=== PATIENT | female | born 1940 | race Two or more races ===

== ENCOUNTER 2020-07-06 17:27 | Inpatient (IN) | payer MEDICARE, MEDICAID, SELFPAY ==
--- NOTE | 2020-07-06 17:36 | ECG_ITS ---
Test Reason : CHEST PAIN Blood Pressure : / mmHG Vent. Rate : 063 BPM Atrial Rate : 063 BPM P-R Int : 178 ms QRS Dur : 082 ms QT Int : 418 ms P-R-T Axes : 058 -03 067 degrees QTc Int : 427 ms Normal sinus rhythm Low voltage QRS Nonspecific ST abnormality Borderline ECG When compared with ECG of 28-MAY-2020 17:19, No significant change was found Referred By: Paula Noriega Electronically Signed By:MARIBEL MOSER MD
--- NOTE | 2020-07-06 17:37 | XR_ITS ---
EXAMINATION: CHEST 1 VIEW CLINICAL INFORMATION: Chest pain. COMPARISON: May 28, 2020. TECHNIQUE: An AP view of the chest is provided. FINDINGS: The cardiac silhouette is stable. A vascular stent is in unchanged position. The mediastinal and hilar contours are unremarkable. There are neither pleural effusions nor pneumothoraces. There are no consolidations. The osseous structures are stable. XR/XR chest 1V IMPRESSION: No evidence for acute disease.
--- NOTE | 2020-07-06 17:40 | ED_ITS ---
HPI - Chest Pain General Chief Complaint: Chest Pain Stated Complaint: chest pain Time Seen by Provider: 07/06/20 17:34 Source: RN notes reviewed and old records reviewed Mode of arrival: EMS Limitations: language barrier, altered mental status and physical limitation History of Present Illness HPI narrative: 79-year-old female presents via EMS for chest pain. Upon arrival patient is not answering any questions, moaning, unable to follow directions. Unable to obtain H&P. She presents from a senior living, medication and medical history obtained from the information in the packet sent. MD complaint: chest pain Pertinent past history: coronary artery disease and prior OH Onset (ago): day(s) Timing of current episode: constant Prior episodes: Yes Severity: moderate Risk Factors Coronary artery disease risk factors: diabetes, hyperlipidemia, hypertension and family history of CAD before age 50 Thoracic aortic dissection risk factors: longstanding hypertension and acortic valve defect (bicuspid aortic valve) Related Data On Oral Contraceptives: No Home Medications Medication Instructions Recorded Confirmed albuterol sulfate [Ventolin HFA] 2 puff INHALATION Q4-6H PRN 07/06/20 07/06/20 apixaban [Eliquis] 5 mg PO BID 07/06/20 07/06/20 atorvastatin 80 mg PO BEDTIME 07/06/20 07/06/20 famotidine 20 mg PO BID 07/06/20 07/06/20 fluticasone furoate-vilanterol 1 inh INHALATION DAILY 07/06/20 07/06/20 [Breo Ellipta] insulin glargine [Lantus Solostar 24 unit SUBCUT QAM 07/06/20 07/06/20 U-100 Insulin] insulin lispro [Humalog U-100 1 sliding scale dose SUBCUT 07/06/20 07/06/20 Insulin] USEASDIRECTD metoprolol succinate 25 mg PO DAILY 07/06/20 07/06/20 multivitamin 1 tab PO DAILY 07/06/20 07/06/20 nystatin [Nystop] 1 applic TOPICAL BID 07/06/20 07/06/20 pregabalin 100 mg PO DAILY 07/06/20 07/06/20 trazodone 50 mg PO BEDTIME 07/06/20 07/06/20 Allergies Allergy/AdvReac Type Severity Reaction Status Date / Time Penicillins [PENICILLINS] Allergy Unknown STOMACH Unverified 06/01/20 14:38 UPSET gabapentin [From Neurontin] Allergy Unknown Verified 07/06/20 17:47 lisinopril Allergy Unknown Verified 07/06/20 17:47 metformin [From Glucophage] Allergy Unknown Verified 07/06/20 17:47 Review of Systems Review of Systems: Yes Unobtainable due to mental status PMF Past Medical History Attestation statement: The following information was validated with the patient. Social History Social History Advance Directives: No Advance Directives Information Provided: No Physical Exam Vital Signs: Vital Signs: Vital Signs Temp Pulse Resp BP Pulse Ox 07/06/20 22:00 70 16 156/77 H 07/06/20 20:00 97.7 F 67 16 146/75 H 94 07/06/20 17:56 98.3 F 07/06/20 17:49 63 22 H 147/44 H 95 Body Mass Index 35.2 Appearance: Alert. unable to answer questions and follow simple commands. Eyes: Pupils equal, round and reactive to light. ENT: Pharynx normal. Neck: Normal inspection. Neck supple. CVS: Normal heart rate and rhythm. Pulses normal. Respiratory: No respiratory distress. Breath sounds normal. Abdomen: Soft and nontender. Skin: Skin warm and dry. Normal skin color. Normal skin turgor. Extremities: No lower extremity edema. Neuro: No motor deficit. No sensory deficit. Course Course Course Narrative: 79-year-old female presents via EMS for chest pain. Unable to obtain history, patient is not answering questions appropriately, moaning, able to make eye contact. Records reviewed from her retirement facility, states that she is legally competent, with history of nonrheumatic aortic valve stenosis, weakness, cardiovascular disease, cerebral vascular disease, COPD, for coordination, arthrosclerosis, angina, dysphagia, prosthetic valve, type 2 diabetes, hyperlipidemia, major depressive disorder, anxiety, hypertension, history of OH and reflux.She does have dysphagia per baseline, needs her medications crushed, unable to contact staff, we will rule out CVA, ACS, infection. RN contacted staff, patient has baseline left-sided contracture, dysphagia, speaks in Cuban, and needs assistance with all activities of daily living including eating. She has dementia per baseline, incontinent of urine and bladder, does not ambulate, is wheelchair or bed-bound. Reevaluation(s) Reevaluation #1: 22 gauge IV to the right hand, 2nd attempt by this [employer]. Labs obtained. Time: 18:32 Reevaluation #2: Nursing updated this [employer] that labs have been hemolyzed, labs reordered. Time: 19:05 Reevaluation #3: discussion with hospitalist at 9:45 p.m. regarding admission, hospitalist agrees to admit at 11:06 p.m.. Rapid COVID-19 ordered. Will be admitted for UTI, does not meet sepsis guideline. Time: 23:17 MDM - Chest Pain Differential Diagnosis Differential diagnosis: Likely pneumothorax, atypical chest pain, st elevation myocardial infarction, costochondritis and chest pain Differential diagnosis: Aspiration pneumonia, sepsis, CVA, urinary tract infection, AAA Medical Records Data Attestation: I reviewed the patient's medical records. Lab Data Attestation: I reviewed the patient's lab results. Result diagrams: 07/06/20 18:32 07/06/20 19:23 Labs: Lab Results 07/06/20 07/06/20 07/06/20 Range/Units 18:32 18:32 18:32 WBC 12.3 H (4.8-10.8) X10*3/uL RBC 4.08 L (4.20-5.50) X10*6/uL Hgb 11.6 L (12.0-16.0) g/dl Hct 36.4 L (37-47) % MCV 89.2 (80-98) fL MCH 28.4 (27.0-33.0) pg MCHC 31.9 (31.0-35.0) g/dl RDW 15.9 (11.0-16.0) % Plt Count 322 (160-400) X10*3/uL MPV 10.5 (9.4-12.3) fL Immature Gran % (Auto) 0.3 (0.0-0.4) % Neut % (Auto) 63.9 (45-73) % Lymph % (Auto) 18.0 L (20-40) % [place] % (Auto) 5.9 (2-11) % Eos % (Auto) 11.2 H (0-4) % Baso % (Auto) 0.7 (0-2) % Lymph # (Auto) 2.2 (1.2-4.9) X10*3/uL [place] # (Auto) 0.7 (0.1-1.2) X10*3/uL Eos # (Auto) 1.4 H (0.0-0.4) X10*3/uL Baso # (Auto) 0.1 (0.0-0.2) X10*3/uL Abs Immat Gran (auto) 0.04 H (0.00-0.03) X10*3/uL Absolute Neuts (auto) 7.8 (2.0-8.3) X10*3/uL Absolute Nucleated RBC 0.000 (0.0-0.012) X10*3/uL Nucleated RBC % (auto) 0.0 (0.0-0.2) /100WBC PT INR APTT Sodium Potassium Chloride Carbon Dioxide Anion Gap BUN Creatinine Estim Creat Clear Calc Estimated GFR POC Glucose (60-115) mg/dL Random Glucose Lactic Acid 1.8 (0.5-2.0) mmol/L Calcium Total Bilirubin Direct Bilirubin AST ALT Alkaline Phosphatase Troponin I High Sens 7.1 (<3.5-17.0) ng/L B-Natriuretic Peptide 26 (<100) pg/mL Total Protein Albumin Lipase Urine Color Urine Appearance Urine pH (5.0-8.0) Ur Specific [place] (1.005-1.025) Urine Protein (NEG-TRACE) MG/DL Urine Glucose (UA) (NEG) MG/DL Urine Ketones (NEG) MG/DL Urine Blood (NEG) Urine Nitrite (NEG) Ur Leukocyte Esterase (NEG) Urine RBC (0) /HPF Urine WBC (0-4) /HPF Ur Squamous Epith Cells /LPF Urine Bacteria /LPF Urine Mucus /LPF 07/06/20 07/06/20 07/06/20 Range/Units 18:32 18:32 19:17 WBC (4.8-10.8) X10*3/uL RBC (4.20-5.50) X10*6/uL Hgb (12.0-16.0) g/dl Hct (37-47) % MCV (80-98) fL MCH (27.0-33.0) pg MCHC (31.0-35.0) g/dl RDW (11.0-16.0) % Plt Count (160-400) X10*3/uL MPV (9.4-12.3) fL Immature Gran % (Auto) (0.0-0.4) % Neut % (Auto) (45-73) % Lymph % (Auto) (20-40) % [place] % (Auto) (2-11) % Eos % (Auto) (0-4) % Baso % (Auto) (0-2) % Lymph # (Auto) (1.2-4.9) X10*3/uL [place] # (Auto) (0.1-1.2) X10*3/uL Eos # (Auto) (0.0-0.4) X10*3/uL Baso # (Auto) (0.0-0.2) X10*3/uL Abs Immat Gran (auto) (0.00-0.03) X10*3/uL Absolute Neuts (auto) (2.0-8.3) X10*3/uL Absolute Nucleated RBC (0.0-0.012) X10*3/uL Nucleated RBC % (auto) (0.0-0.2) /100WBC PT Cancelled INR Cancelled APTT Cancelled Sodium Cancelled Potassium Cancelled Chloride Cancelled Carbon Dioxide Cancelled Anion Gap Cancelled BUN Cancelled Creatinine Cancelled Estim Creat Clear Calc Cancelled Estimated GFR Cancelled POC Glucose 243 H (60-115) mg/dL Random Glucose Cancelled Lactic Acid (0.5-2.0) mmol/L Calcium Cancelled Total Bilirubin Cancelled Direct Bilirubin Cancelled AST Cancelled ALT Cancelled Alkaline Phosphatase Cancelled Troponin I High Sens (<3.5-17.0) ng/L B-Natriuretic Peptide (<100) pg/mL Total Protein Cancelled Albumin Cancelled Lipase Cancelled Urine Color Urine Appearance Urine pH (5.0-8.0) Ur Specific [place] (1.005-1.025) Urine Protein (NEG-TRACE) MG/DL Urine Glucose (UA) (NEG) MG/DL Urine Ketones (NEG) MG/DL Urine Blood (NEG) Urine Nitrite (NEG) Ur Leukocyte Esterase (NEG) Urine RBC (0) /HPF Urine WBC (0-4) /HPF Ur Squamous Epith Cells /LPF Urine Bacteria /LPF Urine Mucus /LPF 07/06/20 07/06/20 07/06/20 Range/Units 19:23 19:23 20:39 WBC (4.8-10.8) X10*3/uL RBC (4.20-5.50) X10*6/uL Hgb (12.0-16.0) g/dl Hct (37-47) % MCV (80-98) fL MCH (27.0-33.0) pg MCHC (31.0-35.0) g/dl RDW (11.0-16.0) % Plt Count (160-400) X10*3/uL MPV (9.4-12.3) fL Immature Gran % (Auto) (0.0-0.4) % Neut % (Auto) (45-73) % Lymph % (Auto) (20-40) % [place] % (Auto) (2-11) % Eos % (Auto) (0-4) % Baso % (Auto) (0-2) % Lymph # (Auto) (1.2-4.9) X10*3/uL [place] # (Auto) (0.1-1.2) X10*3/uL Eos # (Auto) (0.0-0.4) X10*3/uL Baso # (Auto) (0.0-0.2) X10*3/uL Abs Immat Gran (auto) (0.00-0.03) X10*3/uL Absolute Neuts (auto) (2.0-8.3) X10*3/uL Absolute Nucleated RBC (0.0-0.012) X10*3/uL Nucleated RBC % (auto) (0.0-0.2) /100WBC PT 17.0 H INR 1.4 H APTT 43.1 H Sodium 136 Potassium 4.4 Chloride 102 Carbon Dioxide 25 Anion Gap 13 BUN 23 H Creatinine 0.92 Estim Creat Clear Calc 45.4 Estimated GFR 59 POC Glucose (60-115) mg/dL Random Glucose 231 H Lactic Acid (0.5-2.0) mmol/L Calcium 8.8 Total Bilirubin 0.2 Direct Bilirubin < 0.2 AST 21 ALT 33 H Alkaline Phosphatase 110 Troponin I High Sens (<3.5-17.0) ng/L B-Natriuretic Peptide (<100) pg/mL Total Protein 6.7 Albumin 3.9 Lipase 48 Urine Color YELLOW Urine Appearance CLOUDY Urine pH 6.0 (5.0-8.0) Ur Specific [place] 1.010 (1.005-1.025) Urine Protein NEG (NEG-TRACE) MG/DL Urine Glucose (UA) NEG (NEG) MG/DL Urine Ketones NEG (NEG) MG/DL Urine Blood TRACE (NEG) Urine Nitrite POS H (NEG) Ur Leukocyte Esterase 3+ H (NEG) Urine RBC 5-9 H (0) /HPF Urine WBC 76-150 H (0-4) /HPF Ur Squamous Epith Cells 1+ /LPF Urine Bacteria 3+ /LPF Urine Mucus 1+ /LPF Imaging Data Chest x-ray: Attestation: I personally reviewed and interpreted this imaging study as follows: Radiologist's impression: FINDINGS: The cardiac silhouette is stable. A vascular stent is in unchanged position. The mediastinal and hilar contours are unremarkable. There are neither pleural effusions nor pneumothoraces. There are no consolidations. The osseous structures are stable. XR/XR chest 1V IMPRESSION: No evidence for acute disease. CT scan - head: Attestation: I personally reviewed and interpreted this imaging study as follows: Radiologist's impression: FINDINGS: There are no pathologic extra-axial fluid collections. The lateral, third, fourth ventricles are, and, thousand age-appropriate and concordant with the appearance of the sulci. There is no evidence for acute intraparenchymal hemorrhage or infarct. There is neither mass nor mass effect. There is no shift of midline structures. The paranasal sinuses and mastoid air cells are clear. There are no osseous lesions. CT/CT head/brain wo con IMPRESSION: No evidence for acute intracranial injury. Automated exposure control (Care Dose) Adjustment of the mA and/or kv according to patient size (this includes techniques or standardized protocols for targeted exams where dose is matched to indication / reason for exam; i.e. extremities or head). ECG Data ECG #1: Attestation: I personally reviewed and interpreted this ECG as follows: ECG interpretation date: 07/06/20 ECG interpretation time: 17:38 Prior ECG tracings: available for review Interpretation: Vent. rate 63 BPM IA interval 178 ms QRS duration 82 ms QT/QTc 418/427 ms P-R-T axes 58 -3 67 Normal sinus rhythm Low voltage QRS Borderline ECG When compared with ECG of 26-MAY-2020 14:58, No significant change was found please note EKG entered in as HO. Action, 79F visit: [id number] Critical Care Time Critical Care Time Critical Care Time: Yes Total Critical Care Time: 60 Attestation: I have personally provided critical care time exclusive of time spent on separately billable procedures. Time includes review of laboratory data, radiology results, discussion with consultants, and monitoring for potential decompensation. Interventions were performed as documented. Discharge Plan Discharge Clinical Impression: Urinary tract infection Qualifiers: Urinary tract infection type: acute cystitis Hematuria presence: with hematuria Qualified Code(s): N30.01 - Acute cystitis with hematuria Patient Disposition: Admitted As Inpatient Interventions: Admission Worksheet (ED) Last Done: 07/07/20 00:37
--- NOTE | 2020-07-06 17:41 | CT_ITS ---
EXAMINATION: CT HEAD WITHOUT CONTRAST CLINICAL INFORMATION: Altered mental status. COMPARISON: None. TECHNIQUE: Contiguous helical images of the brain were obtained without IV contrast. Multiplanar reconstructions were performed. DLP: 709 mGy-cm. FINDINGS: There are no pathologic extra-axial fluid collections. The lateral, third, fourth ventricles are, and, thousand age-appropriate and concordant with the appearance of the sulci. There is no evidence for acute intraparenchymal hemorrhage or infarct. There is neither mass nor mass effect. There is no shift of midline structures. The paranasal sinuses and mastoid air cells are clear. There are no osseous lesions. CT/CT head/brain wo con IMPRESSION: No evidence for acute intracranial injury. Automated exposure control (Care Dose) Adjustment of the mA and/or kv according to patient size (this includes techniques or standardized protocols for targeted exams where dose is matched to indication / reason for exam; i.e. extremities or head).
[2020-07-06 17:49] VITALS: BP 147/44; PULSE 63; RESP 22; O2SAT 95; BMI 35.2
[2020-07-06 17:56] VITALS: TEMP 36.8
[2020-07-06 18:41] LABS: MANUAL DIFF FLAG NO
[2020-07-06 18:45] LABS: Basophils Absolute Auto 0.1 X10*3/uL (0.0-0.2); Basophils Percent Auto 0.7 % (0-2); Eosinophils Absolute Auto 1.4 X10*3/uL (0.0-0.4); Eosinophils Percent Auto 11.2 % (0-4); Hematocrit 36.4 % (37-47); Hemoglobin 11.6 g/dl (12.0-16.0); Imm Gran Abs Auto 0.04 X10*3/uL (0.00-0.03); Imm Gran Pct Auto 0.3 % (0.0-0.4); Lymphocytes Absolute Auto 2.2 X10*3/uL (1.2-4.9); Mean Corpuscular HGB Conc 31.9 g/dl (31.0-35.0); Mean Corpuscular Hemoglobin 28.4 pg (27.0-33.0); Mean Corpuscular Volume 89.2 fL (80-98); Mean Platelet Volume 10.5 fL (9.4-12.3); Monocytes Absolute Auto 0.7 X10*3/uL (0.1-1.2); Monocytes Percent Auto 5.9 % (2-11); Neutrophils Absolute Auto 7.8 X10*3/uL (2.0-8.3); Neutrophils Percent Auto 63.9 % (45-73); Platelet Count 322 X10*3/uL (160-400); Red Blood Count 4.08 X10*6/uL (4.20-5.50); Red Cell Distribution Width 15.9 % (11.0-16.0); White Blood Count 12.3 X10*3/uL (4.8-10.8)
[2020-07-06 19:06] LABS: Lactic Acid 1.8 mmol/L (0.5-2.0)
[2020-07-06 19:16] LABS: B Type Natriuretic Peptide 26 pg/mL (<100); Troponin-I High Sensitivity 7.1 ng/L (<3.5-17.0)
[2020-07-06 19:29] LABS: Glucose, Whole Blood 243 mg/dL (60-115)
[2020-07-06 19:36] LABS: INTERNATIONAL NORM RATIO 1.4 (0.9-1.1)
[2020-07-06 19:38] LABS: Partial Thromboplastin Time 43.1 SEC (24.1-38.0)
[2020-07-06 19:56] LABS: Alanine Aminotransferase 33 U/L (0-31); Albumin Level 3.9 g/dL (3.5-5.0); Alkaline Phosphatase 110 U/L (39-117); Anion Gap 13 (12-20); Aspartate Amino Transferase 21 U/L (5-31); Bilirubin Direct < 0.2 mg/dL (0.0-0.5); Bilirubin Total 0.2 mg/dL (0.0-1.0); Blood Urea Nitrogen 23 mg/dL (9-16); Calcium 8.8 mg/dL (8.4-10.2); Carbon Dioxide 25 mmol/L (22-29); Chloride 102 mmol/L (96-108); Creatinine Clr Calc Pharmacy 45.4; Estimated Glomerular Filt Rate 59; Glucose Random 231 mg/dL (60-115); Lipase 48 U/L (8-78); Potassium 4.4 mmol/l (3.3-5.1); Sodium 136 mmol/L (135-145); Total Protein 6.7 g/dL (6.5-8.0)
[2020-07-06 20:00] VITALS: BP 146/75; PULSE 67; RESP 16; TEMP 36.5; O2SAT 94
--- NOTE | 2020-07-06 20:14 | PC.NURSE ---
pt in nonverbal with this rn pt left arm contracted, pt incont of large amount of urine. spoke with the [facility] and pt baseline is dementa, needs to be fed and does have coughing with swallowing at baseline. pt doesnt ambulate and is wheelchair bound, pt is on a soft mech diet and needs to be fed, pt also drinks thur a straw. per yeny [phone]. provider also made aware of pt baseline.
[2020-07-06 20:51] LABS: Glucose Urine UA NEG (NEG); Leukocyte Esterase Urine 3+ (NEG); Nitrite Urine POS (NEG); Urine Blood TRACE (NEG); Urine Ketones NEG (NEG); Urine Protein NEG (NEG-TRACE)
[2020-07-06 20:55] LABS: Appearance Urine CLOUDY; Color Urine YELLOW
[2020-07-06 21:00] LABS: Bacteria Urine 3+ /LPF; Mucus Urine 1+ /LPF; Squamous Epithelial Cell Urine 1+ /LPF
[2020-07-06 22:00] VITALS: BP 156/77; PULSE 70; RESP 16
[2020-07-06] MEDS: Insulin Regular, Human 100 UNIT/ML 3 ML VIAL 10 UNIT SUBCUT (22:17)
[2020-07-06] MEDS: cefTRIAXone sodium 1 GM in 0.9 % Sodium Chloride 50 ML IV (22:18)
--- NOTE | 2020-07-06 23:09 | P.HPIM_ITS ---
History of Present Illness Date of Service: 07/06/20 Chief Complaint: Chest pain / AMS 79 y/o female with an extensive PMHX who presented from home due to AMS and c/o chest pain . Patient is minimally verbal given possible underlying dementia and dysarthria due to hx of CVA with left sided hemiparesis. Symptoms are reported to be present for the past 1 day. No evidence of SOB, nausea, vomiting, cough, fever or diarrhea is reported. On presentation to the ED was noted to be tachypneic which improved without intervention, no evidence of tachycardia or fever. BP stable. WBC of 12.3, INR of 1.4, Ua positive for UTI, CT head negative for any acute intracranial pathology. CXR no evidence of any underlying pa thology. Decision for admission was given due to UTI and possible underlying metabolic encephalopathy. Patient seen and examined at the bedside, laying down in bed in no acute distress. ROS unable to be obtained given mental state. Physical exam: patient cooperative, following simple commands, LUE strenght 1/5, LLE/RUE/RLE strength preserved. sensation preserved. It is not clear if this is baseline mental state of the patient at the moment. Past Medical History: 1. STEMI status post PCI 2. Anxiety 3. Depression 4. Aortic stenosis 5. Diverticulosis 6. Diabetes mellitus 7. History of aortic valve replacement with bioprosthetic valve (TAVR) 8. Hyperlipidemia 9. Hypertension 10. Incontinence 11. Insomnia 12. Osteoarthritis 13. Obesity 14. GERD 15. Right rotator cuff tear with impingement status post surgical intervention 16. Cardiac catheterization 03/21/2017 with findings of anterior myocardial infarction, showed distal LAD occlusion, resolved with thrombectomy and vasodilation 17. Excision of benign neck lesion on 10/11/2008 18. Cholecystectomy PSX: cholecystectomy, excision of benign neck lesion, rotator cuff repair, valve replacement, S/p PCI Toxic habits: NO hx of alcohol abuse, smoking or IVDA Review of Systems Review of Systems: Yes Other (unable to be obtained) [facility] Functional capacity: bed bound Social History Advance Directives: No Advance Directives Information Provided: No Meds Allergies Allergy/AdvReac Type Severity Reaction Status Date / Time Penicillins [PENICILLINS] Allergy Unknown STOMACH Unverified 06/01/20 14:38 UPSET gabapentin [From Neurontin] Allergy Unknown Verified 07/06/20 17:47 lisinopril Allergy Unknown Verified 07/06/20 17:47 metformin [From Glucophage] Allergy Unknown Verified 07/06/20 17:47 Home Medications Medication Instructions Recorded Confirmed Type albuterol sulfate [Ventolin HFA] 2 puff INHALATION Q4-6H PRN 07/06/20 07/06/20 History apixaban [Eliquis] 5 mg PO BID 07/06/20 07/06/20 History atorvastatin 80 mg PO BEDTIME 07/06/20 07/06/20 History famotidine 20 mg PO BID 07/06/20 07/06/20 History fluticasone furoate-vilanterol 1 inh INHALATION DAILY 07/06/20 07/06/20 History [Breo Ellipta] insulin glargine [Lantus Solostar 24 unit SUBCUT QAM 07/06/20 07/06/20 History U-100 Insulin] insulin lispro [Humalog U-100 1 sliding scale dose SUBCUT 07/06/20 07/06/20 History Insulin] USEASDIRECTD metoprolol succinate 25 mg PO DAILY 07/06/20 07/06/20 History multivitamin 1 tab PO DAILY 07/06/20 07/06/20 History nystatin [Nystop] 1 applic TOPICAL BID 07/06/20 07/06/20 History pregabalin 100 mg PO DAILY 07/06/20 07/06/20 History trazodone 50 mg PO BEDTIME 07/06/20 07/06/20 History Physical Exam Vital Signs and Narrative: Vital Signs: Last Vital Signs Temp 97.7 F 07/06/20 20:00 Pulse 67 07/06/20 20:00 Resp 16 07/06/20 20:00 BP 146/75 H 07/06/20 20:00 Pulse Ox 94 07/06/20 20:00 Body Mass Index 35.2 Const: General: cooperative, comfortable and no acute distress HENMT: Head: Yes normal to inspection Eyes: General: appearance normal, both eyes and all related structures Neck: Yes normal visual inspection Chest: Chest palpation & inspection: normal inspection of the chest Resp: Effort & Inspection: normal respiratory effort Cardio: Jugular venous distension: no JVD Heart sounds: S1 normal heart sound present and S2 normal heart sound present GI: Inspection: Yes normal to inspection Skin: General skin exam: no rashes or lesions noted Neuro: General: other (awake, alert, unable to assess orientation given dysarthria and dementia) Extrem: General: Yes other (all 4 extremities mildly contracted ) Psych: Appearance: well kempt Results Labs Labs: Laboratory Tests 07/06/20 07/06/20 07/06/20 18:32 18:32 18:32 WBC 12.3 H RBC 4.08 L Hgb 11.6 L Hct 36.4 L MCV 89.2 MCH 28.4 MCHC 31.9 RDW 15.9 Plt Count 322 MPV 10.5 Immature Gran % (Auto) 0.3 Neut % (Auto) 63.9 Lymph % (Auto) 18.0 L [place] % (Auto) 5.9 Eos % (Auto) 11.2 H Baso % (Auto) 0.7 Lymph # (Auto) 2.2 [place] # (Auto) 0.7 Eos # (Auto) 1.4 H Baso # (Auto) 0.1 Abs Immat Gran (auto) 0.04 H Absolute Neuts (auto) 7.8 Absolute Nucleated RBC 0.000 Nucleated RBC % (auto) 0.0 PT INR APTT Sodium Potassium Chloride Carbon Dioxide Anion Gap BUN Creatinine Estim Creat Clear Calc Estimated GFR POC Glucose Random Glucose Lactic Acid 1.8 Calcium Total Bilirubin Direct Bilirubin AST ALT Alkaline Phosphatase Troponin I High Sens 7.1 B-Natriuretic Peptide 26 Total Protein Albumin Lipase Urine Color Urine Appearance Urine pH Ur Specific [place] Urine Protein Urine Glucose (UA) Urine Ketones Urine Blood Urine Nitrite Ur Leukocyte Esterase Urine RBC Urine WBC Ur Squamous Epith Cells Urine Bacteria Urine Mucus 07/06/20 07/06/20 07/06/20 18:32 18:32 19:17 WBC RBC Hgb Hct MCV MCH MCHC RDW Plt Count MPV Immature Gran % (Auto) Neut % (Auto) Lymph % (Auto) [place] % (Auto) Eos % (Auto) Baso % (Auto) Lymph # (Auto) [place] # (Auto) Eos # (Auto) Baso # (Auto) Abs Immat Gran (auto) Absolute Neuts (auto) Absolute Nucleated RBC Nucleated RBC % (auto) PT Cancelled INR Cancelled APTT Cancelled Sodium Cancelled Potassium Cancelled Chloride Cancelled Carbon Dioxide Cancelled Anion Gap Cancelled BUN Cancelled Creatinine Cancelled Estim Creat Clear Calc Cancelled Estimated GFR Cancelled POC Glucose 243 H Random Glucose Cancelled Lactic Acid Calcium Cancelled Total Bilirubin Cancelled Direct Bilirubin Cancelled AST Cancelled ALT Cancelled Alkaline Phosphatase Cancelled Troponin I High Sens B-Natriuretic Peptide Total Protein Cancelled Albumin Cancelled Lipase Cancelled Urine Color Urine Appearance Urine pH Ur Specific [place] Urine Protein Urine Glucose (UA) Urine Ketones Urine Blood Urine Nitrite Ur Leukocyte Esterase Urine RBC Urine WBC Ur Squamous Epith Cells Urine Bacteria Urine Mucus 07/06/20 07/06/20 07/06/20 19:23 19:23 20:39 WBC RBC Hgb Hct MCV MCH MCHC RDW Plt Count MPV Immature Gran % (Auto) Neut % (Auto) Lymph % (Auto) [place] % (Auto) Eos % (Auto) Baso % (Auto) Lymph # (Auto) [place] # (Auto) Eos # (Auto) Baso # (Auto) Abs Immat Gran (auto) Absolute Neuts (auto) Absolute Nucleated RBC Nucleated RBC % (auto) PT 17.0 H INR 1.4 H APTT 43.1 H Sodium 136 Potassium 4.4 Chloride 102 Carbon Dioxide 25 Anion Gap 13 BUN 23 H Creatinine 0.92 Estim Creat Clear Calc 45.4 Estimated GFR 59 POC Glucose Random Glucose 231 H Lactic Acid Calcium 8.8 Total Bilirubin 0.2 Direct Bilirubin < 0.2 AST 21 ALT 33 H Alkaline Phosphatase 110 Troponin I High Sens B-Natriuretic Peptide Total Protein 6.7 Albumin 3.9 Lipase 48 Urine Color YELLOW Urine Appearance CLOUDY Urine pH 6.0 Ur Specific [place] 1.010 Urine Protein NEG Urine Glucose (UA) NEG Urine Ketones NEG Urine Blood TRACE Urine Nitrite POS H Ur Leukocyte Esterase 3+ H Urine RBC 5-9 H Urine WBC 76-150 H Ur Squamous Epith Cells 1+ Urine Bacteria 3+ Urine Mucus 1+ Assessment and Plan (1) Urinary tract infection: Qualifiers: Hematuria presence: with hematuria Urinary tract infection type: acute cystitis Qualified Code(s): N30.01 - Acute cystitis with hematuria Status: Acute S/p one dose of Rocephin in the ED Follow up Ucx and Bcx Continue with Rocephin for gram neg coverage Follow up Covid rapid test monitor mental status closely Infectious disease consult in the am (2) Aortic valve replaced: Status: Acute continue with eliquis home dose (3) Hyperlipidemia: Status: Acute continue with statin home dose (4) Diabetes: Status: Acute Insulin regimen as ordered (5) Hx of stroke associated with blood clotting tendency: Status: Acute all 4 extremities contracted with left UE weakness, dysarthria (6) Hypertension: Status: Acute continue with metoprolol home dose (Hx of CAD s/p PCI in the past) (7) Peripheral neuropathy: Status: Acute continue with pregabalin home dose
[2020-07-07] VITALS (10 sets, daily range): BP systolic 125–172; BP diastolic 50–83; PULSE 68–88; RESP 16–20; TEMP 35.8–37; O2SAT 93–96; BMI 35.2
--- NOTE | 2020-07-07 00:33 | PC.NURSE ---
NURSE TO NURSE REPORT GIVEN TO ROSHAN SUN/
[2020-07-07 02:25] LABS: SARS COV2 PCR INHOUSE NEGATIVE (Negative)
[2020-07-07] MEDS: 0.9 % Sodium Chloride Flush 3 ML SYRINGE IVFLUSH ×4 (04:18→23:34)
[2020-07-07 06:16] LABS: MANUAL DIFF FLAG NO
[2020-07-07 06:28] LABS: Basophils Absolute Auto 0.1 X10*3/uL (0.0-0.2); Basophils Percent Auto 0.8 % (0-2); Eosinophils Absolute Auto 1.5 X10*3/uL (0.0-0.4); Eosinophils Percent Auto 11.7 % (0-4); Hematocrit 38.2 % (37-47); Hemoglobin 12.3 g/dl (12.0-16.0); Imm Gran Abs Auto 0.03 X10*3/uL (0.00-0.03); Imm Gran Pct Auto 0.2 % (0.0-0.4); Lymphocytes Absolute Auto 2.5 X10*3/uL (1.2-4.9); Lymphocytes Percent Auto 19.7 % (20-40); Mean Corpuscular HGB Conc 32.2 g/dl (31.0-35.0); Mean Corpuscular Hemoglobin 28.2 pg (27.0-33.0); Mean Corpuscular Volume 87.6 fL (80-98); Mean Platelet Volume 10.2 fL (9.4-12.3); Monocytes Absolute Auto 0.9 X10*3/uL (0.1-1.2); Monocytes Percent Auto 7.2 % (2-11); Neutrophils Absolute Auto 7.5 X10*3/uL (2.0-8.3); Neutrophils Percent Auto 60.4 % (45-73); Platelet Count 332 X10*3/uL (160-400); Red Blood Count 4.36 X10*6/uL (4.20-5.50); Red Cell Distribution Width 15.7 % (11.0-16.0); White Blood Count 12.5 X10*3/uL (4.8-10.8)
[2020-07-07 07:22] LABS: Anion Gap 14 (12-20); Blood Urea Nitrogen 21 mg/dL (9-16); Carbon Dioxide 26 mmol/L (22-29); Chloride 104 mmol/L (96-108); Creatinine Clr Calc Pharmacy 49.1; Estimated Glomerular Filt Rate > 60; Glucose Random 104 mg/dL (60-115); Potassium 4.3 mmol/l (3.3-5.1); Sodium 140 mmol/L (135-145)
[2020-07-07 07:30] LABS: Calcium 9.4 mg/dL (8.4-10.2)
[2020-07-07 07:47] LABS: Glucose, Whole Blood 122 mg/dL (60-115)
--- NOTE | 2020-07-07 09:57 | P.PNIM_ITS ---
Subjective Subjective Date of Service: 07/07/20 Interval History: seen and examined this AM with the help of LONG LINES OPERATOR on floor who translates patient with slurred speech, with ? is baseline for her. answering questions appropriately denies any pain later on -- patients care home instrument technologist bedside -- reports patient is now at baseline Review of Systems General - no fevers or chills Cardiovascular - no chest pain Respiratory - no shortness of breath or cough Abdominal- no abdominal pain, nausea, vomiting, diarrhea Physical Exam Vital Signs: Vital Signs: Vital Signs Temp Pulse Resp BP Pulse Ox 07/07/20 08:00 97.0 F 88 18 147/60 H 94 07/07/20 03:39 97 F 68 18 163/83 H 94 07/07/20 02:58 72 16 147/60 H 95 07/07/20 00:00 98.6 F 20 163/65 H 96 07/06/20 22:00 70 16 156/77 H 07/06/20 20:00 97.7 F 67 16 146/75 H 94 07/06/20 17:56 98.3 F 07/06/20 17:49 63 22 H 147/44 H 95 Body Mass Index 35.2 General - no acute distress, appears comfortable Cardiovascular - s1s2 Lungs - normal respiratory effort, clear to auscultation bilaterally, no wheezing Abdomen - soft, nontender, no rebound regarding Extremities - no edema bilaterally Neuro - awake and alert, oriented to self; ? L sided hemiplegia/contracture -- which per ED notes is chronic Objective Data Current Medications Generic Name Dose Route Start Last Admin Trade Name Freq PRN Reason Stop Dose Admin Albuterol Sulfate 2 puff 07/06/20 23:11 Albuterol Sulfate 90 Mcg 18 Gm Inhaler INHALE Q4H PRN Shortness Of Breath Or Wheezing Apixaban 5 mg 07/07/20 09:00 Apixaban 5 Mg Tablet PO BID YAZMIN Atorvastatin Calcium 80 mg 07/07/20 21:00 Atorvastatin Calcium 80 Mg Tablet PO BEDTIME YAZMIN Famotidine 20 mg 07/07/20 09:00 Famotidine 20 Mg Tablet PO BID YAZMIN Fluticasone/Vilanterol 1 puff 07/07/20 09:00 07/07/20 09:28 Fluticasone/Vilanterol 100/25 Blst.W.Dev INHALE Not Given DAILY YAZMIN Ceftriaxone Sodium 1 gm/ 50 mls @ 100 mls/hr 07/07/20 22:00 Sodium Chloride IV Q24H [facility] Insulin Glargine 24 unit 07/06/20 23:30 07/07/20 04:02 Insulin Glargine,Hum.Rec.Anlog 100 Unit/Ml 10 Ml Vial SUBCUT Not Given 2200 [facility] Insulin Human Lispro 5 unit 07/07/20 07:30 07/07/20 07:55 Insulin Lispro 100 Unit/Ml 3 Ml Vial SUBCUT Not Given QIDACHS [facility] Metoprolol Succinate 25 mg 07/07/20 09:00 Metoprolol Succinate Er 25 Mg Tab.Er.24h PO DAILY [facility] Protocol Multivitamins/Vitamin C 1 tab 07/07/20 09:00 Multivitamin Tablet PO DAILY [facility] Pregabalin 100 mg 07/07/20 09:00 Pregabalin 100 Mg Capsule PO DAILY [facility] Sodium Chloride 3 ml 07/07/20 03:31 07/07/20 07:39 0.9 % Sodium Chloride Flush 3 Ml Syringe IVFLUSH 3 ml QSHIFT [facility] Administration Labs CBC & Chem 7: 07/07/20 05:59 07/07/20 05:59 Assessment and Plan (1) Urinary tract infection: Status: Acute Assessment and Plan: This is a 79 yo F with a PMH of CAD - status post stenting, - s/p TAVR, anxiety/depression who presented to the hospital with ? complaints of CP. EKG/trop negative in the ED but work up revealed UTI and as such, admitted. 1. UTI rocephin f/u c&s no sepsis at this time 2. DM POC + ISS QIDAC diabetic -- ground diet 3. History of CVA, ? history of hypercoag. state pts mentation baseline per care home staff continue her baseline meds including eliquis 4. Chest pain resolved trop/ekg negative monitor -- if recurrent, further work up and move to telemetry continue chronic meds Full Code DVT pptx, Eliquis
[2020-07-07] MEDS: Famotidine 20 MG TABLET PO ×2 (10:59→22:03)
[2020-07-07] MEDS: Apixaban 5 MG TABLET PO ×2 (10:59→22:03)
[2020-07-07] MEDS: Multivitamin TABLET 1 TAB PO (10:59)
[2020-07-07] MEDS: Pregabalin 100 MG CAPSULE PO (10:59)
[2020-07-07] MEDS: Metoprolol Succinate ER 25 MG TAB.ER.24H PO (10:59)
--- NOTE | 2020-07-07 11:06 | MHC.CM.PN ---
PER CONVERSATION WITH DAUGHTERROBERTO, PATIENT LIVES IN A [facility]. GRAND DAUGHTER IS HCP, AND A COPY IS REQUESTED. CALL TO CUSTOM SHOP WORKER, NEETU @ [phone]. NEETU IS ON HER WAY IN. SHE IS AWARE THAT [facility] [place] BY FRIDAY, AND A REQUEST FOR WHAT IS NEEDED TO FACILITATE THIS HAS BEEN MADE. CONVERSATION WITH CUSTOM SHOP WORKER WILL BE HAD UPON HER ARRIVAL IMM 07/07 IN CHART
[2020-07-07 11:32] LABS: Glucose, Whole Blood 188 mg/dL (60-115)
--- NOTE | 2020-07-07 11:55 | MHC.CM.PN ---
PATIENT LIVES AT [address] [place] [address]. HER PCP IS NOW JORDAN ALFREDO OF [facility]. UPDATE MADE IN QUICK TASK OF [employer]. PATIENT DOES NOT AMBULATE, AND IS A BABAR LIFT FOR TRANSFERS. SHE WILL NEED BLS HOME TO [facility] SET[facility].
[2020-07-07 16:56] LABS: Glucose, Whole Blood 194 mg/dL (60-115)
[2020-07-07] MEDS: Insulin Lispro 100 UNIT/ML 3 ML VIAL SUBCUT ×2 (17:11→22:09)
[2020-07-07 20:59] LABS: Glucose, Whole Blood 260 mg/dL (60-115)
[2020-07-07] MEDS: Atorvastatin Calcium 80 MG TABLET PO (22:03)
[2020-07-07] MEDS: Insulin Glargine,Hum.rec.anlog 100 UNIT/ML 10 ML VIAL 24 UNIT SUBCUT (22:11)
[2020-07-07] MEDS: cefTRIAXone sodium 1 GM in 0.9 % Sodium Chloride 50 ML IV (22:12)
[2020-07-08 04:00] VITALS: BP 131/59; PULSE 75; RESP 18; TEMP 36.1; O2SAT 95
[2020-07-08 07:31] VITALS: BP 127/72; PULSE 74; RESP 16; TEMP 36.3; O2SAT 97
[2020-07-08] MEDS: Fluticasone/Vilanterol 100/25 BLST.W.DEV 1 PUFF INHALE (07:41)
[2020-07-08 08:00] VITALS: BP 134/52; PULSE 74; RESP 19; TEMP 36.3; O2SAT 93
[2020-07-08] MEDS: Pregabalin 100 MG CAPSULE PO (09:16)
[2020-07-08] MEDS: Multivitamin TABLET 1 TAB PO (09:16)
[2020-07-08] MEDS: 0.9 % Sodium Chloride Flush 3 ML SYRINGE IVFLUSH ×2 (09:16→16:54)
[2020-07-08] MEDS: Apixaban 5 MG TABLET PO ×2 (09:16→22:21)
[2020-07-08] MEDS: Famotidine 20 MG TABLET PO ×2 (09:16→22:21)
[2020-07-08] MEDS: Metoprolol Succinate ER 25 MG TAB.ER.24H PO (09:16)
--- NOTE | 2020-07-08 09:48 | P.PNIM_ITS ---
Subjective Subjective Date of Service: 07/08/20 Interval History: seen and examined this AM denies chest pain, in fact denies all pain complaints wnats to back to her home Review of Systems General - no fevers or chills Cardiovascular - no chest pain Respiratory - no shortness of breath or cough Abdominal- no abdominal pain, nausea, vomiting, diarrhea Physical Exam Vital Signs: Vital Signs: Vital Signs Temp Pulse Resp BP Pulse Ox 07/08/20 08:00 97.4 F 74 19 134/52 L 93 07/08/20 07:31 97.4 F 74 16 127/72 97 07/08/20 04:00 97 F 75 18 131/59 L 95 07/07/20 23:03 98 F 73 18 141/65 H 95 07/07/20 21:00 145/77 H 07/07/20 19:57 97.7 F 76 18 172/66 H 94 07/07/20 15:27 96.9 F 75 18 142/60 H 95 07/07/20 11:49 96.5 F L 83 18 140/71 H 93 07/07/20 10:59 79 125/50 L Body Mass Index 35.2 General - no acute distress, appears comfortable Cardiovascular - s1s2 Lungs - normal respiratory effort, clear to auscultation bilaterally, no wheezing Abdomen - soft, nontender, no rebound regarding Extremities - no edema bilaterally Neuro - awake and alert, oriented to self; L sided hemiplegia/contracture -- chronic Objective Data Current Medications Generic Name Dose Route Start Last Admin Trade Name Freq PRN Reason Stop Dose Admin Albuterol Sulfate 2 puff 07/07/20 10:45 Albuterol Sulfate 90 Mcg 18 Gm Inhaler INHALE Q4H PRN Shortness Of Breath Or Wheezin Apixaban 5 mg 07/07/20 09:00 07/08/20 09:16 Apixaban 5 Mg Tablet PO 5 mg BID YAZMIN Administration Atorvastatin Calcium 80 mg 07/07/20 21:00 07/07/20 22:03 Atorvastatin Calcium 80 Mg Tablet PO 80 mg BEDTIME YAZMIN Administration Famotidine 20 mg 07/07/20 09:00 07/08/20 09:16 Famotidine 20 Mg Tablet PO 20 mg BID YAZMIN Administration Fluticasone/Vilanterol 1 puff 07/08/20 10:45 07/08/20 07:41 Fluticasone/Vilanterol 100/25 Blst.W.Dev INHALE 1 puff DAILY [facility] Administration Ceftriaxone Sodium 1 gm/ 50 mls @ 100 mls/hr 07/07/20 22:00 07/07/20 22:42 Sodium Chloride IV Infused Q24H YAZMIN Infusion Insulin Glargine 24 unit 07/06/20 23:30 07/07/20 22:11 Insulin Glargine,Hum.Rec.Anlog 100 Unit/Ml 10 Ml Vial SUBCUT 24 unit 2200 YAZMIN Administration Insulin Human Lispro 0 unit 07/07/20 21:00 07/08/20 09:16 Insulin Lispro 100 Unit/Ml 3 Ml Vial SUBCUT Not Given QIDACHS [facility] Protocol Metoprolol Succinate 25 mg 07/07/20 09:00 07/08/20 09:16 Metoprolol Succinate Er 25 Mg Tab.Er.24h PO 25 mg DAILY YAZMIN Administration Protocol Multivitamins/Vitamin C 1 tab 07/07/20 09:00 07/08/20 09:16 Multivitamin Tablet PO 1 tab DAILY YAZIMN Administration Pregabalin 100 mg 07/07/20 09:00 07/08/20 09:16 Pregabalin 100 Mg Capsule PO 100 mg DAILY YAZMIN Administration Sodium Chloride 3 ml 07/07/20 03:31 07/08/20 09:16 0.9 % Sodium Chloride Flush 3 Ml Syringe IVFLUSH 3 ml QSHIFT [facility] Administration Labs CBC & Chem 7: 07/07/20 05:59 07/07/20 05:59 Microbiology Microbiology Results: Microbiology 07/06/20 19:23 Blood - Venous Blood Culture - Preliminary No growth after 24 hours. 07/06/20 18:32 Blood - Venous Blood Culture - Preliminary No growth after 24 hours. Assessment and Plan (1) Urinary tract infection: Status: Acute Assessment and Plan: This is a 79 yo F with a PMH of CAD - status post stenting, - s/p TAVR, anxiety/depression who presented to the hospital with ? complaints of CP. EKG/trop negative in the ED but work up revealed UTI and as such, admitted. 1. UTI rocephin day #2, likely ceftin upon d/c f/u c&s, pending blood cx negative to date 2. DM POC + ISS QIDAC diabetic -- ground diet 3. History of CVA, ? history of hypercoag. state pts mentation baseline per assisted staff continue her baseline meds including eliquis 4. Chest pain resolved trop/ekg negative monitor -- if recurrent, further work up and move to telemetry continue chronic meds Full Code DVT pptx, Eliquis medically stable for d/c back to skilled nursing. skilled nursing cannot take her back until Friday07/10/2020
[2020-07-08 11:33] VITALS: BP 155/58; PULSE 82; RESP 20; TEMP 36.5; O2SAT 94
[2020-07-08 11:34] LABS: Glucose, Whole Blood 136 mg/dL (60-115)
[2020-07-08 12:28] LABS: Glucose, Whole Blood 251 mg/dL (60-115)
[2020-07-08] MEDS: Insulin Lispro 100 UNIT/ML 3 ML VIAL SUBCUT ×3 (14:00→22:21)
[2020-07-08 15:52] VITALS: BP 150/61; PULSE 75; RESP 18; TEMP 36.3; O2SAT 95
[2020-07-08 16:45] LABS: Glucose, Whole Blood 199 mg/dL (60-115)
[2020-07-08 21:14] LABS: Glucose, Whole Blood 287 mg/dL (60-115)
[2020-07-08] MEDS: Atorvastatin Calcium 80 MG TABLET PO (22:21)
[2020-07-08] MEDS: Insulin Glargine,Hum.rec.anlog 100 UNIT/ML 10 ML VIAL 24 UNIT SUBCUT (22:22)
[2020-07-08] MEDS: cefTRIAXone sodium 1 GM in 0.9 % Sodium Chloride 50 ML IV (22:23)
[2020-07-08 23:22] VITALS: BP 143/83; PULSE 76; RESP 18; TEMP 36.5; O2SAT 96
[2020-07-09] MEDS: 0.9 % Sodium Chloride Flush 3 ML SYRINGE IVFLUSH ×4 (00:23→21:38)
[2020-07-09 07:37] VITALS: BP 130/74; PULSE 70; RESP 17; TEMP 35.9; O2SAT 96
[2020-07-09 07:55] LABS: Glucose, Whole Blood 138 mg/dL (60-115)
[2020-07-09] MEDS: Pregabalin 100 MG CAPSULE PO (08:18)
[2020-07-09] MEDS: Multivitamin TABLET 1 TAB PO (08:18)
[2020-07-09] MEDS: Famotidine 20 MG TABLET PO ×2 (08:18→21:37)
[2020-07-09] MEDS: Apixaban 5 MG TABLET PO ×2 (08:18→21:37)
[2020-07-09] MEDS: Metoprolol Succinate ER 25 MG TAB.ER.24H PO (08:18)
[2020-07-09 11:27] VITALS: BP 136/55; PULSE 72; RESP 17; TEMP 36.4; O2SAT 93
[2020-07-09 11:27] LABS: Glucose, Whole Blood 165 mg/dL (60-115)
[2020-07-09] MEDS: Insulin Lispro 100 UNIT/ML 3 ML VIAL SUBCUT ×3 (11:28→21:38)
--- NOTE | 2020-07-09 11:47 | HO.PM.IMPN ---
Subjective Subjective Date of Service: 07/09/20 Interval History: seen and examined this AM at baseline, no new complaints / no new issues reported Review of Systems no chest pain no sob Physical Exam Vital Signs: Vital Signs: Vital Signs Temp Pulse Resp BP Pulse Ox 07/09/20 11:27 97.5 F 72 17 136/55 L 93 07/09/20 07:37 96.7 F L 70 17 130/74 96 07/08/20 23:22 97.7 F 76 18 143/83 H 96 07/08/20 15:52 97.3 F 75 18 150/61 H 95 Body Mass Index 35.2 General - no acute distress, appears comfortable Cardiovascular - s1s2 Lungs - normal respiratory effort, clear to auscultation bilaterally, no wheezing Abdomen - soft, nontender, no rebound regarding Extremities - no edema bilaterally Neuro - awake and alert, oriented to self; L sided hemiplegia/contracture -- chronic Objective Data Current Medications Generic Name Dose Route Start Last Admin Trade Name Freq PRN Reason Stop Dose Admin Albuterol Sulfate 2 puff 07/07/20 10:45 Albuterol Sulfate 90 Mcg 18 Gm Inhaler INHALE Q4H PRN Shortness Of Breath Or Wheezin Apixaban 5 mg 07/07/20 09:00 07/09/20 08:18 Apixaban 5 Mg Tablet PO 5 mg BID YAZMIN Administration Atorvastatin Calcium 80 mg 07/07/20 21:00 07/08/20 22:21 Atorvastatin Calcium 80 Mg Tablet PO 80 mg BEDTIME YAZMIN Administration Famotidine 20 mg 07/07/20 09:00 07/09/20 08:18 Famotidine 20 Mg Tablet PO 20 mg BID YAZMIN Administration Fluticasone/Vilanterol 1 puff 07/08/20 10:45 07/09/20 07:56 Fluticasone/Vilanterol 100/25 Blst.W.Dev INHALE Not Given DAILY YAZMIN Ceftriaxone Sodium 1 gm/ 50 mls @ 100 mls/hr 07/07/20 22:00 07/08/20 22:53 Sodium Chloride IV Infused Q24H YAZMIN Infusion Insulin Glargine 24 unit 07/06/20 23:30 07/08/20 22:22 Insulin Glargine,Hum.Rec.Anlog 100 Unit/Ml 10 Ml Vial SUBCUT 24 unit 2199 YAZMIN Administration Insulin Human Lispro 0 unit 07/07/20 21:00 07/09/20 11:28 Insulin Lispro 100 Unit/Ml 3 Ml Vial SUBCUT 2 unit QIDACHS [facility] Administration Protocol Metoprolol Succinate 25 mg 07/07/20 09:00 07/09/20 08:18 Metoprolol Succinate Er 25 Mg Tab.Er.24h PO 25 mg DAILY YAZMIN Administration Protocol Multivitamins/Vitamin C 1 tab 07/07/20 09:00 07/09/20 08:18 Multivitamin Tablet PO 1 tab DAILY YAZMIN Administration Pregabalin 100 mg 07/07/20 09:00 07/09/20 08:18 Pregabalin 100 Mg Capsule PO 100 mg DAILY YAZMIN Administration Sodium Chloride 3 ml 07/07/20 03:31 07/09/20 08:17 0.9 % Sodium Chloride Flush 3 Ml Syringe IVFLUSH 3 ml QSHIFT [facility] Administration Labs CBC & Chem 7: 07/07/20 05:59 07/07/20 05:59 Microbiology Microbiology Results: Microbiology 07/07/20 20:39 Urine clean catch - Clean Catch Midstream Urine Culture - Preliminary Escherichia coli 07/06/20 19:23 Blood - Venous Blood Culture - Preliminary No growth after 48 hours. 07/06/20 18:32 Blood - Venous Blood Culture - Preliminary No growth after 48 hours. Assessment and Plan (1) Urinary tract infection: Status: Acute Assessment and Plan: This is a 79 yo F with a PMH of CAD - status post stenting, - s/p TAVR, anxiety/depression who presented to the hospital with ? complaints of CP. EKG/trop negative in the ED but work up revealed UTI and as such, admitted. 1. E. Coli UTI rocephin day #3, likely ceftin upon d/c final C&S pending blood cx negative to date 2. DM POC + ISS QIDAC diabetic -- ground diet 3. History of CVA, ? history of hypercoag. state pts mentation baseline per senior care staff continue her baseline meds including eliquis 4. Chest pain resolved trop/ekg negative monitor -- if recurrent, further work up and move to telemetry continue chronic meds Full Code DVT pptx, Eliquis medically stable for d/c back to halfway. halfway cannot take her back until Friday07/10/2020
[2020-07-09 15:36] VITALS: BP 149/72; PULSE 84; RESP 18; TEMP 36.7; O2SAT 96
[2020-07-09 16:42] LABS: Glucose, Whole Blood 270 mg/dL (60-115)
[2020-07-09 21:01] LABS: Glucose, Whole Blood 346 mg/dL (60-115)
[2020-07-09] MEDS: Insulin Glargine,Hum.rec.anlog 100 UNIT/ML 10 ML VIAL 24 UNIT SUBCUT (21:37)
[2020-07-09] MEDS: Atorvastatin Calcium 80 MG TABLET PO (21:37)
[2020-07-09] MEDS: cefTRIAXone sodium 1 GM in 0.9 % Sodium Chloride 50 ML IV (21:50)
[2020-07-09 23:21] VITALS: BP 138/65; PULSE 84; RESP 18; TEMP 36.8; O2SAT 100
[2020-07-10 03:48] VITALS: BP 139/86; PULSE 69; RESP 19; TEMP 36.7; O2SAT 96
[2020-07-10 03:50] VITALS: BP 139/86; PULSE 69; RESP 19; O2SAT 97
[2020-07-10] MEDS: Fluticasone/Vilanterol 100/25 BLST.W.DEV 1 PUFF INHALE (08:27)
[2020-07-10 08:35] LABS: Glucose, Whole Blood 100 mg/dL (60-115)
--- NOTE | 2020-07-10 08:53 | PM.DS ---
DS: Providers Provider Date of admission: 07/06/20 23:20 Primary care physician: Unknown Physician Consults: 07/07/20 03:31 Consult to Physician Routine Consulting Provider: Infectious Disease Reason for consultation: UTI Has provider been notified: No DS: Diagnosis Discharge Diagnosis (1) Urinary tract infection: Status: Acute (2) Chest pain: Status: Acute Problem details: resolved at the time of admission (3) Diabetes: Status: Acute (4) Hyperlipidemia: Status: Acute (5) Aortic valve replaced: Status: Acute DS: Summary Hospital Course Hospital Course: From the admission H&P: 79 y/o female with an extensive PMHX who presented from home due to AMS and c/o chest pain . Patient is minimally verbal given possible underlying dementia and dysarthria due to hx of CVA with left sided hemiparesis. Symptoms are reported to be present for the past 1 day. No evidence of SOB, nausea, vomiting, cough, fever or diarrhea is reported. On presentation to the ED was noted to be tachypneic which improved without intervention, no evidence of tachycardia or fever. BP stable. WBC of 12.3, INR of 1.4, Ua positive for UTI, CT head negative for any acute intracranial pathology. CXR no evidence of any underlying pathology. Decision for admission was given due to UTI and possible underlying metabolic encephalopathy. Patient seen and examined at the bedside, laying down in bed in no acute distress. ROS unable to be obtained given mental state. Physical exam: patient cooperative, following simple commands, LUE strenght 1/5, LLE/RUE/RLE strength preserved. sensation preserved. It is not clear if this is baseline mental state of the patient at the moment. HPI Patients chest pain had resolved in the ED. Her EKG and HS trop-I were not indicative of acute ischemic. She was however noted to have An urinalysis which was suggestive of urinary tract infection. She had cultures drawn and was started on IV ceftriaxone. Her urine cultures resulted positive for Time Spent with Patient Time attestation: Total time spent providing and/or coordinating discharge services: Physical Exam Vital Signs: Vital Signs: Vital Signs Temp Pulse Resp BP Pulse Ox 07/10/20 03:50 69 19 139/86 97 07/10/20 03:48 98.0 F 69 19 139/86 96 07/09/20 23:21 98.2 F 84 18 138/65 100 07/09/20 15:36 98.1 F 84 18 149/72 H 96 07/09/20 11:27 97.5 F 72 17 136/55 L 93 Body Mass Index 35.2 DS: Data Data Completed and Pending Labs on day of discharge: Labs from last 24 hours 07/10/20 07/09/20 07/09/20 08:30 20:58 16:39 POC Glucose 100 346 H 270 H 07/09/20 11:20 POC Glucose 165 H Preliminary micro results at discharge 07/07/20 20:39 Urine Culture - Preliminary Urine clean catch - Clean Catch Midstream Escherichia coli 07/06/20 19:23 Blood Culture - Preliminary Blood - Venous No growth after 48 hours. 07/06/20 18:32 Blood Culture - Preliminary Blood - Venous No growth after 48 hours. Discharge Plan Discharge Patient Disposition: Home, Self-Care Referrals: Physician,Unknown [Primary Care Provider] - Discharge Medications: New cefuroxime axetil 500 mg tablet 500 mg PO Q12H Qty: 10 RF: 0 Continued trazodone 50 mg Tablet 50 mg PO BEDTIME RF: 0 metoprolol succinate 25 mg Tablet Extended Release 24 Hr 25 mg PO DAILY RF: 0 albuterol sulfate [Ventolin HFA] 90 mcg/actuation Hfa Aerosol Inhaler 2 puff INHALATION Q4-6H PRN (Reason: Shortness Of Breath Or Wheezing) RF: 0 Eliquis 5 mg Tablet 5 mg PO BID RF: 0 Breo Ellipta 100-25 mcg/dose Blister With Device 1 inh INHALATION DAILY RF: 0 atorvastatin 80 mg Tablet 80 mg PO BEDTIME RF: 0 famotidine 20 mg Tablet 20 mg PO BID RF: 0 pregabalin 100 mg Capsule 100 mg PO DAILY RF: 0 Humalog U-100 Insulin 100 unit/mL Cartridge 1 sliding scale dose SUBCUT USEASDIRECTD RF: 0 Lantus Solostar U-100 Insulin 100 unit/mL (3 mL) Insulin Pen 24 unit SUBCUT QAM RF: 0 multivitamin Tablet 1 tab PO DAILY RF: 0 nystatin [Nystop] 100,000 unit/gram Powder 1 applic TOPICAL BID RF: 0 Discharge Orders: Discharge Order (Routine); Ordered 07/10/20 Ordered By: Anthony aMst Diet: advance to your usual diet Activity on Discharge: As tolerated Visit Report Forms: Patient Portal Discharge page Care Plan Goals: To complete antibiotic course and feel better Health Concerns: UTI Plan of Treatment: Cefuroxime 500mg twice daily for 5 more days
--- NOTE | 2020-07-10 09:02 | HO.PM.IMPN ---
Subjective Subjective Interval History: seen and examined this AM no new issues reported Physical Exam Vital Signs: Vital Signs: Vital Signs Temp Pulse Resp BP Pulse Ox 07/10/20 03:50 69 19 139/86 97 07/10/20 03:48 98.0 F 69 19 139/86 96 07/09/20 23:21 98.2 F 84 18 138/65 100 07/09/20 15:36 98.1 F 84 18 149/72 H 96 07/09/20 11:27 97.5 F 72 17 136/55 L 93 Body Mass Index 35.2 General - no acute distress, appears comfortable Cardiovascular - s1s2 Lungs - normal respiratory effort, clear to auscultation bilaterally, no wheezing Abdomen - soft, nontender, no rebound regarding Extremities - no edema bilaterally Neuro - awake and alert, oriented to self; L sided hemiplegia/contracture -- chronic Objective Data Current Medications Generic Name Dose Route Start Last Admin Trade Name Freq PRN Reason Stop Dose Admin Albuterol Sulfate 2 puff 07/07/20 10:45 Albuterol Sulfate 90 Mcg 18 Gm Inhaler INHALE Q4H PRN Shortness Of Breath Or Wheezin Apixaban 5 mg 07/07/20 09:00 07/09/20 21:37 Apixaban 5 Mg Tablet PO 5 mg BID YAZMIN Administration Atorvastatin Calcium 80 mg 07/07/20 21:00 07/09/20 21:37 Atorvastatin Calcium 80 Mg Tablet PO 80 mg BEDTIME YAZMIN Administration Famotidine 20 mg 07/07/20 09:00 07/09/20 21:37 Famotidine 20 Mg Tablet PO 20 mg BID YAZMIN Administration Fluticasone/Vilanterol 1 puff 07/08/20 10:45 07/10/20 08:27 Fluticasone/Vilanterol 100/25 Blst.W.Dev INHALE 1 puff DAILY YAZMIN Administration Ceftriaxone Sodium 1 gm/ 50 mls @ 100 mls/hr 07/07/20 22:00 07/09/20 22:23 Sodium Chloride IV Infused Q24H YAZMIN Infusion Insulin Glargine 24 unit 07/06/20 23:30 07/09/20 21:37 Insulin Glargine,Hum.Rec.Anlog 100 Unit/Ml 10 Ml Vial SUBCUT 24 unit 2200 YAZMIN Administration Insulin Human Lispro 0 unit 07/07/20 21:00 07/09/20 21:38 Insulin Lispro 100 Unit/Ml 3 Ml Vial SUBCUT 8 unit QIDACHS [facility] Administration Protocol Metoprolol Succinate 25 mg 07/07/20 09:00 07/09/20 08:18 Metoprolol Succinate Er 25 Mg Tab.Er.24h PO 25 mg DAILY YAZMIN Administration Protocol Multivitamins/Vitamin C 1 tab 07/07/20 09:00 07/09/20 08:18 Multivitamin Tablet PO 1 tab DAILY YZAMIN Administration Pregabalin 100 mg 07/07/20 09:00 07/09/20 08:18 Pregabalin 100 Mg Capsule PO 100 mg DAILY YAZMIN Administration Sodium Chloride 3 ml 07/07/20 03:31 07/09/20 21:38 0.9 % Sodium Chloride Flush 3 Ml Syringe IVFLUSH 3 ml QSHIFT YAZMIN Administration Labs CBC & Chem 7: 07/07/20 05:59 07/07/20 05:59 Microbiology Microbiology Results: Microbiology 07/07/20 20:39 Urine clean catch - Clean Catch Midstream Urine Culture - Preliminary Escherichia coli 07/06/20 19:23 Blood - Venous Blood Culture - Preliminary No growth after 48 hours. 07/06/20 18:32 Blood - Venous Blood Culture - Preliminary No growth after 48 hours. Assessment and Plan (1) Urinary tract infection: Status: Acute (2) Chest pain: Problem details: resolved at the time of admission Status: Acute (3) Diabetes: Status: Acute (4) Hyperlipidemia: Status: Acute (5) Aortic valve replaced: Status: Acute Assessment and Plan: This is a 79 yo F with a PMH of CAD - status post stenting, - s/p TAVR, anxiety/depression who presented to the hospital with ? complaints of CP. EKG/trop negative in the ED but work up revealed UTI and as such, admitted. 1. E. Coli UTI improved on rocephin, but now cultures growing ESBL. Change to Merrem, consult ID. (sensitive to Macrobid) blood cx negative to date 2. DM POC + ISS QIDAC diabetic -- ground diet 3. History of CVA, ? history of hypercoag. state pts mentation baseline per halfway staff continue her baseline meds including eliquis 4. Chest pain resolved trop/ekg negative monitor -- if recurrent, further work up and move to telemetry continue chronic meds Full Code DVT pptx, Eliquis hold discharge until seen by ID to determine -- to see if needs to treated with carbapenem versus okay with Macrobid
--- NOTE | 2020-07-10 09:07 | MHC.CM.PN ---
Discharge cancelled. Antonio (group dynamics instructor) made aware. PATIENT'S PHARMACY IS [facility] FOR ANY PO MEDICATIONS. CASE MANAGEMENT FOLLOWING.
[2020-07-10] MEDS: Apixaban 5 MG TABLET PO ×2 (09:41→22:01)
[2020-07-10] MEDS: Multivitamin TABLET 1 TAB PO (09:41)
[2020-07-10] MEDS: Famotidine 20 MG TABLET PO ×2 (09:41→22:01)
[2020-07-10] MEDS: Pregabalin 100 MG CAPSULE PO (09:41)
[2020-07-10] MEDS: Metoprolol Succinate ER 25 MG TAB.ER.24H PO (09:41)
[2020-07-10] MEDS: 0.9 % Sodium Chloride Flush 3 ML SYRINGE IVFLUSH ×3 (09:50→15:53)
[2020-07-10 11:28] LABS: Glucose, Whole Blood 271 mg/dL (60-115)
[2020-07-10] MEDS: Insulin Lispro 100 UNIT/ML 3 ML VIAL SUBCUT ×3 (12:20→22:01)
[2020-07-10 16:00] VITALS: BP 140/63; PULSE 73; RESP 18; TEMP 36.3; O2SAT 96
--- NOTE | 2020-07-10 16:32 | P.CNID_ITS ---
History of Present Illness Data of Consult Service Date: 07/10/20 Requesting physician: Anthony Mast Primary Care Provider: Unknown Physician HPI Reason for consult: hematuria with tachypnea,mild elevation WBC Patient presents from facility with worsening confusion She also has hematuria for a day She has no fever,nausea or vomiting There is no COVID Review of Systems Review of Systems: Yes Unobtainable due to mental status PMFSH Past Medical History Functional capacity: bed bound Social History Social History Household Members: Other Household Members Other:: intermediate Housing: Other Housing Other:: intermediate Do you presently have visiting nurse or other home services: Yes Smoking Status: Unknown if ever smoked Use of substances other than those prescribed or required for medical reasons: Unknown Currently Displaying Signs/Symptoms of Drug Intoxication Withdrawal: No Any prior treatment program specific to substance use: No Advance Directives: No Advance Directives Information Provided: No Do you have thoughts of harming others: None Do you have a plan to hurt others: No Plan Recently lost weight without trying: Unsure service: No Current occupational status: disabled Meds Allergies Allergy/AdvReac Type Severity Reaction Status Date / Time Penicillins [PENICILLINS] Allergy Unknown STOMACH Unverified 06/01/20 14:38 UPSET gabapentin [From Neurontin] Allergy Unknown Verified 07/06/20 17:47 lisinopril Allergy Unknown Verified 07/06/20 17:47 metformin [From Glucophage] Allergy Unknown Verified 07/06/20 17:47 Home Medications Medication Instructions Recorded Confirmed Type Breo Ellipta 1 inh INHALATION DAILY 07/06/20 07/06/20 History Eliquis 5 mg PO BID 07/06/20 07/06/20 History Humalog U-100 Insulin 1 sliding scale dose SUBCUT 07/06/20 07/06/20 History USEASDIRECTD Lantus Solostar U-100 Insulin 24 unit SUBCUT QAM 07/06/20 07/06/20 History albuterol sulfate [Ventolin HFA] 2 puff INHALATION Q4-6H PRN 07/06/20 07/06/20 History atorvastatin 80 mg PO BEDTIME 07/06/20 07/06/20 History famotidine 20 mg PO BID 07/06/20 07/06/20 History metoprolol succinate 25 mg PO DAILY 07/06/20 07/06/20 History multivitamin 1 tab PO DAILY 07/06/20 07/06/20 History nystatin [Nystop] 1 applic TOPICAL BID 07/06/20 07/06/20 History pregabalin 100 mg PO DAILY 07/06/20 07/06/20 History trazodone 50 mg PO BEDTIME 07/06/20 07/06/20 History Physical Exam Vital Signs: Vital Signs: Vital Signs Temp Pulse Resp BP Pulse Ox 07/10/20 16:00 97.4 F 73 18 140/63 H 96 07/10/20 03:50 69 19 139/86 97 07/10/20 03:48 98.0 F 69 19 139/86 96 07/09/20 23:21 98.2 F 84 18 138/65 100 Body Mass Index 35.2 Const: General: cooperative HENMT: Head: Yes normal to inspection Eyes: General: appearance normal, both eyes and all related structures Resp: Effort & Inspection: normal respiratory effort Cardio: Rate: regular rate Rhythm: regular rhythm GI: Inspection: Yes normal to inspection Back/Spine/Pelvis: Thoracic/Lumbar Spine: thoracic and lumbar spine normal to inspection Skin: General skin exam: no rashes or lesions noted Extrem: Left upper extremity: no joint enlargement Assessment and Plan (1) Urinary tract infection: Qualifiers: Hematuria presence: with hematuria Urinary tract infection type: acute cystitis Qualified Code(s): N30.01 - Acute cystitis with hematuria Problem details: There is likely urinary source of sepsis There is no bacteremia She is chronically incontinent Status: Acute Po Macrobid for 10-14 days 100 mg bid (2) Aortic valve replaced: Problem details: no endocarditis no bacteremia Status: Acute Results Labs CBC & Chem 7: 07/07/20 05:59 07/07/20 05:59 Microbiology Microbiology Results: Microbiology 07/07/20 20:39 Urine clean catch - Clean Catch Midstream Urine Culture - Final Escherichia coli 07/06/20 19:23 Blood - Venous Blood Culture - Preliminary No growth after 48 hours. 07/06/20 18:32 Blood - Venous Blood Culture - Preliminary No growth after 48 hours.
[2020-07-10 16:51] LABS: Glucose, Whole Blood 184 mg/dL (60-115)
[2020-07-10 19:41] VITALS: BP 116/62; PULSE 75; RESP 18; TEMP 36.6; O2SAT 96
[2020-07-10 20:51] LABS: Glucose, Whole Blood 259 mg/dL (60-115)
[2020-07-10] MEDS: Atorvastatin Calcium 80 MG TABLET PO (22:01)
[2020-07-10] MEDS: Insulin Glargine,Hum.rec.anlog 100 UNIT/ML 10 ML VIAL 24 UNIT SUBCUT (22:02)
[2020-07-10 23:37] VITALS: BP 146/69; PULSE 78; RESP 19; TEMP 36.4; O2SAT 96
[2020-07-11 07:17] VITALS: BP 164/71; PULSE 72; RESP 18; TEMP 36.2; O2SAT 99
[2020-07-11] MEDS: 0.9 % Sodium Chloride Flush 3 ML SYRINGE IVFLUSH ×3 (07:20→21:06)
[2020-07-11 08:16] LABS: Glucose, Whole Blood 136 mg/dL (60-115)
[2020-07-11] MEDS: Multivitamin TABLET 1 TAB PO (08:34)
[2020-07-11] MEDS: Apixaban 5 MG TABLET PO ×2 (08:34→21:01)
[2020-07-11] MEDS: Metoprolol Succinate ER 25 MG TAB.ER.24H PO (08:34)
[2020-07-11] MEDS: Pregabalin 100 MG CAPSULE PO (08:35)
[2020-07-11] MEDS: Famotidine 20 MG TABLET PO ×2 (08:35→21:01)
[2020-07-11 11:32] LABS: Glucose, Whole Blood 263 mg/dL (60-115)
[2020-07-11] MEDS: Insulin Lispro 100 UNIT/ML 3 ML VIAL SUBCUT ×3 (11:51→21:02)
--- NOTE | 2020-07-11 13:33 | MHC.CM.PN ---
PATIENT WILL DISCHARGE BACK TO [facility] T[facility]ORROW (07/12) ON PO MEDICATION. BILINGUAL INSIDE SALES REPRESENTATIVE, NEETU ([phone]) AWARE OF PLAN.
--- NOTE | 2020-07-11 13:54 | HO.PM.IMPN ---
Subjective Subjective Date of Service: 07/11/20 Interval History: Patient admitted for chest pain noted to have abnormal EKG and troponin and workup showed UTI, this morning patient is resting in bed comfortably history obtained via clinical support tech patient offers no acute complaints. Review of Systems General no headache, no dizziness no fever chills. CVS no chest pain, no palpitation. Respiratory no cough, no sputum production, no respiratory distress. Gastrointestinal no nausea, no vomiting, no abdominal pain Physical Exam Vital Signs: Vital Signs: Vital Signs Temp Pulse Resp BP Pulse Ox 07/11/20 07:17 97.1 F 72 18 164/71 H 99 07/10/20 23:37 97.6 F 78 19 146/69 H 96 07/10/20 19:41 98 F 75 18 116/62 96 07/10/20 16:00 97.4 F 73 18 140/63 H 96 Body Mass Index 35.2 General patient resting comfortably in bed, no acute distress. Neck is supple no JVD. CVS regular rate rhythm, Respiratory lungs clear to auscultation, no respiratory distress, no wheeze, no rhonchi. Gastrointestinal abdomen soft, nontender, bowel sounds audible, no no guarding , no rigidity. Extremities no clubbing cyanosis or edema. Neuro left-sided hemiplegia/ chronic contracture deformity Skin no rash Objective Data Current Medications Generic Name Dose Route Start Last Admin Trade Name Freq PRN Reason Stop Dose Admin Albuterol Sulfate 2 puff 07/07/20 10:45 Albuterol Sulfate 90 Mcg 18 Gm Inhaler INHALE Q4H PRN Shortness Of Breath Or Wheezin Apixaban 5 mg 07/07/20 09:00 07/11/20 08:34 Apixaban 5 Mg Tablet PO 5 mg BID YAZMIN Administration Atorvastatin Calcium 80 mg 07/07/20 21:00 07/10/20 22:01 Atorvastatin Calcium 80 Mg Tablet PO 80 mg BEDTIME YAZMIN Administration Famotidine 20 mg 07/07/20 09:00 07/11/20 08:35 Famotidine 20 Mg Tablet PO 20 mg BID YAZMIN Administration Fluticasone/Vilanterol 1 puff 07/08/20 10:45 07/11/20 07:20 Fluticasone/Vilanterol 100/25 Blst.W.Dev INHALE Not Given DAILY YAZMIN Meropenem 1 gm/ Sodium 100 mls @ 100 mls/hr 10/26/20 22:00 07/11/20 10:24 Chloride IV Infused Q12H YAZMIN Infusion Insulin Glargine 24 unit 07/06/20 23:30 07/10/20 22:02 Insulin Glargine,Hum.Rec.Anlog 100 Unit/Ml 10 Ml Vial SUBCUT 24 unit 2200 YAZMIN Administration Insulin Human Lispro 0 unit 07/07/20 21:00 07/11/20 11:51 Insulin Lispro 100 Unit/Ml 3 Ml Vial SUBCUT 6 unit QIDACHS [facility] Administration Protocol Metoprolol Succinate 25 mg 07/07/20 09:00 07/11/20 08:34 Metoprolol Succinate Er 25 Mg Tab.Er.24h PO 25 mg DAILY [facility] Administration Protocol Multivitamins/Vitamin C 1 tab 07/07/20 09:00 07/11/20 08:34 Multivitamin Tablet PO 1 tab DAILY YAZMIN Administration Pregabalin 100 mg 07/07/20 09:00 07/11/20 08:35 Pregabalin 100 Mg Capsule PO 100 mg DAILY YAZMIN Administration Sodium Chloride 3 ml 07/07/20 03:31 07/11/20 07:20 0.9 % Sodium Chloride Flush 3 Ml Syringe IVFLUSH 3 ml QSHIFT [facility] Administration Labs CBC & Chem 7: 07/07/20 05:59 07/07/20 05:59 Microbiology Microbiology Results: Microbiology 07/07/20 20:39 Urine clean catch - Clean Catch Midstream Urine Culture - Final Escherichia coli 07/06/20 19:23 Blood - Venous Blood Culture - Preliminary No growth after 48 hours. 07/06/20 18:32 Blood - Venous Blood Culture - Preliminary No growth after 48 hours. Assessment and Plan (1) Urinary tract infection: Problem details: There is likely urinary source of sepsis There is no bacteremia She is chronically incontinent Status: Acute (2) Hyperlipidemia: Status: Acute (3) Diabetes: Status: Acute (4) Chest pain: Problem details: resolved at the time of admission Status: Acute (5) Peripheral neuropathy: Status: Acute Assessment and Plan: 79 yo F with a PMH of CAD - status post stenting, - s/p TAVR, anxiety/depression who presented to the hospital with ? complaints of CP. EKG/trop negative in the ED but work up revealed UTI and as such, admitted. 1. E. Coli UTI cultures growing ESBL on IV meropenem, will discuss with ID regarding use of IV ertapenem versus PO macrobid blood cultures x2 are negative. WBC trended down, no fevers. 2. DM elevated blood sugar, despite being on home dose of Lantus 24 units and ISS QIDAC continue diabetic ground diet follow blood sugars and adjust medications 3. History of CVA, ? history of hypercoag. state pts mentation is at baseline per correction staff, continue home medication and Eliquis 4. Chest pain resolved trop/ekg negative monitor -- if recurrent symptoms will initiate workup. continue chronic meds Full Code DVT pptx, Eliquis
[2020-07-11 15:48] VITALS: BP 120/62; PULSE 63; RESP 18; TEMP 36.2; O2SAT 97
[2020-07-11 16:54] LABS: Glucose, Whole Blood 204 mg/dL (60-115)
[2020-07-11 19:27] VITALS: BP 107/67; PULSE 72; RESP 19; TEMP 36.7; O2SAT 94
[2020-07-11 20:50] LABS: Glucose, Whole Blood 183 mg/dL (60-115)
[2020-07-11] MEDS: Atorvastatin Calcium 80 MG TABLET PO (21:01)
[2020-07-11] MEDS: Insulin Glargine,Hum.rec.anlog 100 UNIT/ML 10 ML VIAL 24 UNIT SUBCUT (21:01)
[2020-07-11 23:36] VITALS: BP 134/50; PULSE 66; RESP 18; TEMP 36.3; O2SAT 94
[2020-07-12 06:21] LABS: MANUAL DIFF FLAG NO
[2020-07-12 06:43] LABS: Basophils Absolute Auto 0.1 X10*3/uL (0.0-0.2); Basophils Percent Auto 0.9 % (0-2); Eosinophils Absolute Auto 1.3 X10*3/uL (0.0-0.4); Eosinophils Percent Auto 10.8 % (0-4); Hematocrit 37.8 % (37-47); Imm Gran Abs Auto 0.03 X10*3/uL (0.00-0.03); Imm Gran Pct Auto 0.3 % (0.0-0.4); Lymphocytes Absolute Auto 2.6 X10*3/uL (1.2-4.9); Lymphocytes Percent Auto 22.1 % (20-40); Mean Corpuscular HGB Conc 31.7 g/dl (31.0-35.0); Mean Corpuscular Hemoglobin 28.4 pg (27.0-33.0); Mean Corpuscular Volume 89.4 fL (80-98); Mean Platelet Volume 10.7 fL (9.4-12.3); Monocytes Absolute Auto 0.8 X10*3/uL (0.1-1.2); Neutrophils Absolute Auto 6.9 X10*3/uL (2.0-8.3); Neutrophils Percent Auto 58.9 % (45-73); Platelet Count 318 X10*3/uL (160-400); Red Blood Count 4.23 X10*6/uL (4.20-5.50); Red Cell Distribution Width 15.9 % (11.0-16.0); White Blood Count 11.7 X10*3/uL (4.8-10.8)
[2020-07-12 07:16] VITALS: BP 167/67; PULSE 69; RESP 19; TEMP 36.2; O2SAT 100
[2020-07-12 07:25] LABS: Glucose, Whole Blood 130 mg/dL (60-115)
[2020-07-12] MEDS: 0.9 % Sodium Chloride Flush 3 ML SYRINGE IVFLUSH (07:26)
[2020-07-12] MEDS: Apixaban 5 MG TABLET PO (08:08)
[2020-07-12] MEDS: Metoprolol Succinate ER 25 MG TAB.ER.24H PO (08:08)
[2020-07-12] MEDS: Multivitamin TABLET 1 TAB PO (08:08)
[2020-07-12] MEDS: Pregabalin 100 MG CAPSULE PO (08:08)
[2020-07-12] MEDS: Fluticasone/Vilanterol 100/25 BLST.W.DEV 1 PUFF INHALE (08:08)
[2020-07-12] MEDS: Famotidine 20 MG TABLET PO (08:09)
[2020-07-12] MEDS: Nitrofurantoin Monohyd/M-Cryst 100 MG CAPSULE PO (11:00)
--- NOTE | 2020-07-12 11:27 | P.DS_ITS ---
DS: Providers Provider Date of admission: 07/06/20 23:20 Primary care physician: Unknown Physician Consults: 07/07/20 03:31 Consult to Physician Routine Consulting Provider: Infectious Disease Reason for consultation: UTI Has provider been notified: No 07/10/20 09:07 Consult to Infectious Diseases Routine Consulting Provider: Yaquelin Hernández Reason for consultation: ESBL e. coli in the urine DS: Diagnosis Discharge Diagnosis (1) Urinary tract infection: Status: Acute Problem details: There is likely urinary source of sepsis There is no bacteremia She is chronically incontinent (2) Hyperlipidemia: Status: Acute (3) Diabetes: Status: Acute (4) Chest pain: Status: Acute Problem details: resolved at the time of admission (5) Peripheral neuropathy: Status: Acute DS: Summary Hospital Course Hospital Course: From the admission H&P: 79 y/o female with an extensive PMHX who presented from home due to AMS and c/o chest pain . Patient is minimally verbal given possible underlying dementia and dysarthria due to hx of CVA with left sided hemiparesis. Symptoms are reported to be present for the past 1 day. No evidence of SOB, nausea, vomiting, cough, fever or diarrhea is reported. On presentation to the ED was noted to be tachypneic which improved without intervention, no evidence of tachycardia or fever. BP stable. WBC of 12.3, INR of 1.4, Ua positive for UTI, CT head negative for any acute intracranial pathology. CXR no evidence of any underlying pathology. Decision for admission was given due to UTI and possible underlying metabolic encephalopathy. Patient seen and examined at the bedside, laying down in bed in no acute distress. ROS unable to be obtained given mental state. Physical exam: patient cooperative, following simple commands, LUE strenght 1/5, LLE/RUE/RLE strength preserved. sensation preserved. It is not clear if this is baseline mental state of the patient at the moment. Hospital course Patients chest pain had resolved in the ED. Her EKG and HS trop-I were not indicative of acute ischemic. She was however noted to have An urinalysis which was suggestive of urinary tract infection. She had cultures drawn and was started on IV ceftriaxone. patient urine culture grew E coli ESBL positive patient initially treated with IV meropenem patient was followed closely by Dr. Leona Hernández she recommend by mouth Macrobid therefore patient is now being discharged home on 10 more days of by mouth Macrobid patient blood cultures x2 came back negative. Time Spent with Patient Time attestation: Total time spent providing and/or coordinating discharge services: Physical Exam Vital Signs: Vital Signs: Vital Signs Temp Pulse Resp BP Pulse Ox 07/12/20 07:16 97.1 F 69 19 167/67 H 100 07/11/20 23:36 97.4 F 66 18 134/50 L 94 07/11/20 19:27 98.1 F 72 19 107/67 94 07/11/20 15:48 97.1 F 63 18 120/62 97 Body Mass Index 35.2 General patient resting comfortably in bed, no acute distress. Neck is supple no JVD. CVS regular rate rhythm, Respiratory lungs clear to auscultation, no respiratory distress, no wheeze, no rhonchi. Gastrointestinal abdomen soft, nontender, bowel sounds audible, no guarding , no rigidity. Extremities no clubbing cyanosis or edema. Neuro left-sided hemiplegia/ chronic contracture deformity Skin no rash DS: Data Data Completed and Pending Labs on day of discharge: Labs from last 24 hours 07/12/20 07/12/20 07/12/20 11:00 07:21 05:50 WBC 11.7 H RBC 4.23 Hgb 12.0 Hct 37.8 MCV 89.4 MCH 28.4 MCHC 31.7 RDW 15.9 Plt Count 318 MPV 10.7 Immature Gran % (Auto) 0.3 Neut % (Auto) 58.9 Lymph % (Auto) 22.1 [place] % (Auto) 7.0 Eos % (Auto) 10.8 H Baso % (Auto) 0.9 Lymph # (Auto) 2.6 [place] # (Auto) 0.8 Eos # (Auto) 1.3 H Baso # (Auto) 0.1 Abs Immat Gran (auto) 0.03 Absolute Neuts (auto) 6.9 Absolute Nucleated RBC 0.000 Nucleated RBC % (auto) 0.0 POC Glucose 130 H Coronavirus (PCR) Pending 07/11/20 07/11/20 07/11/20 20:32 16:44 11:28 WBC RBC Hgb Hct MCV MCH MCHC RDW Plt Count MPV Immature Gran % (Auto) Neut % (Auto) Lymph % (Auto) [place] % (Auto) Eos % (Auto) Baso % (Auto) Lymph # (Auto) [place] # (Auto) Eos # (Auto) Baso # (Auto) Abs Immat Gran (auto) Absolute Neuts (auto) Absolute Nucleated RBC Nucleated RBC % (auto) POC Glucose 183 H 204 H 263 H Coronavirus (PCR) Discharge Plan Discharge Patient Disposition: Home, Self-Care Referrals: Physician,Unknown [Primary Care Provider] - Discharge Medications: New nitrofurantoin monohyd/m-cryst 100 mg Capsule 100 mg PO Q12H Qty: 20 RF: 0 Continued trazodone 50 mg Tablet 50 mg PO BEDTIME RF: 0 metoprolol succinate 25 mg Tablet Extended Release 24 Hr 25 mg PO DAILY RF: 0 albuterol sulfate [Ventolin HFA] 90 mcg/actuation Hfa Aerosol Inhaler 2 puff INHALATION Q4-6H PRN (Reason: Shortness Of Breath Or Wheezing) RF: 0 Eliquis 5 mg Tablet 5 mg PO BID RF: 0 Breo Ellipta 100-25 mcg/dose Blister With Device 1 inh INHALATION DAILY RF: 0 atorvastatin 80 mg Tablet 80 mg PO BEDTIME RF: 0 famotidine 20 mg Tablet 20 mg PO BID RF: 0 pregabalin 100 mg Capsule 100 mg PO DAILY RF: 0 Humalog U-100 Insulin 100 unit/mL Cartridge 1 sliding scale dose SUBCUT USEASDIRECTD RF: 0 Lantus Solostar U-100 Insulin 100 unit/mL (3 mL) Insulin Pen 24 unit SUBCUT QAM RF: 0 multivitamin Tablet 1 tab PO DAILY RF: 0 nystatin [Nystop] 100,000 unit/gram Powder 1 applic TOPICAL BID RF: 0 Discharge Orders: Discharge Order (Routine); Ordered 07/12/20 Ordered By: Roel Clark Diet: advance to your usual diet Activity on Discharge: As tolerated Visit Report Forms: Patient Portal Discharge page Care Plan Goals: To complete antibiotic course and feel better Health Concerns: UTI Plan of Treatment: finish course of antibiotic and follow-up with primary care physician.
--- NOTE | 2020-07-12 11:27 | MHC.CM.PN ---
PATIENT TO RETURN TO [facility] SETTING TODAY. [facility] ([phone]) AWARE OF PLAN. NO MEDICATION FORMS FOUND IN [facility] TO TRANSPORT.
[2020-07-12 11:38] LABS: Glucose, Whole Blood 278 mg/dL (60-115)
[2020-07-12] MEDS: Insulin Lispro 100 UNIT/ML 3 ML VIAL SUBCUT (11:43)
[2020-07-12 12:14] LABS: SARS COV2 PCR INHOUSE NEGATIVE (Negative)
[2020-07-12 16:00] VITALS: BP 148/67; PULSE 70; RESP 18; TEMP 36.5; O2SAT 94
--- NOTE | 2020-07-12 16:37 | MHC.CM.PN ---
CALL RECEIVED FROM LABOR REPRESENTATIVE, NEETU. NEETU STATES THAT THE RN WHO ADMINISTERS LANTUS IS GONE FOR THE DAY. SHE ASKS THAT WE ADMINISTER IT HERE. PER CONVERSATION WITH RN, PATIENT RECEIVES HER LANTUS IN THE MORNING, AND CAN DO SO AT HER NURSING HOME.
== END 2020-07-12 17:36 | disposition home or self-care (01) | DRG 690 ==
LOC: HO.ED 23:20 → HO.S3 23:54
PROVIDERS: Family Medicine; Nurse Practitioner Family; Admitting Provider Internal Medicine; Emergency Provider Emergency Medicine; Visit Provider Hospitalist
DX: N39.0 Urinary tract infection, site not specified (principal); Z16.12 Extended spectrum beta lactamase (ESBL) resistance; E78.5 Hyperlipidemia, unspecified; I10 Essential (primary) hypertension; I25.2 Old myocardial infarction; E11.42 Type 2 diabetes mellitus with diabetic polyneuropathy; K21.9 Gastro-esophageal reflux disease without esophagitis; R07.9 Chest pain, unspecified; Z86.73 Personal history of transient ischemic attack (TIA), and cerebral infarction without residual deficits; B96.20 Unspecified Escherichia coli [E. coli] as the cause of diseases classified elsewhere; Z20.828 Contact with and (suspected) exposure to other viral communicable diseases; Z88.0 Allergy status to penicillin; Z79.4 Long term (current) use of insulin; Z79.01 Long term (current) use of anticoagulants; Z79.899 Other long term (current) drug therapy
CPT/HCPCS: 36415; 70450; 71045; 80048; 80076; 81001; 82947; 83605; 83690; 83880; 84484; 85025; 85610; 85730; 87040; 87086; 87088; 87186; 87635; 93005; 94640; 96360; 99285; 99291; J2185

== ENCOUNTER 2020-07-18 17:58 | Emergency (ER) | payer MEDICARE, MEDICAID, SELFPAY ==
[2020-07-18 18:09] VITALS: BP 102/69; BP 166/55; PULSE 70; RESP 17; TEMP 37.2; O2SAT 97; BMI 28.4
[2020-07-18 18:27] LABS: Glucose, Whole Blood 227 mg/dL (60-115)
--- NOTE | 2020-07-18 18:37 | XR_ITS ---
EXAMINATION: XR CHEST CLINICAL INFORMATION: Chest pain COMPARISON: Chest x-ray 07/06/2020 TECHNIQUE: Frontal view of the chest was obtained. FINDINGS: Stable cardiac silhouette. Stable aortic valve stent graft. The lungs are well aerated. There is no lobar consolidation. No pleural effusion or pneumothorax. Degenerative changes of the spine and shoulders. XR/XR chest 1V IMPRESSION: No acute pulmonary pathology.
--- NOTE | 2020-07-18 18:37 | ECG_ITS ---
Test Reason : CHEST PAIN Blood Pressure : / mmHG Vent. Rate : 066 BPM Atrial Rate : 066 BPM P-R Int : 192 ms QRS Dur : 086 ms QT Int : 422 ms P-R-T Axes : 045 -04 072 degrees QTc Int : 442 ms Normal sinus rhythm Low voltage QRS Nonspecific ST abnormality Lateral leads Abnormal ECG When compared with ECG of 06-JUL-2020 17:38, No significant change was found Referred By: Paula Noriega Electronically Signed By:MARIBEL MOSER MD
--- NOTE | 2020-07-18 18:57 | ED_ITS ---
HPI - Chest Pain General Chief Complaint: Chest Pain Stated Complaint: CP PER [facility] Time Seen by Provider: 07/18/20 18:37 Source: EMS, RN notes reviewed and old records reviewed Mode of arrival: other Limitations: language barrier, altered mental status and physical limitation History of Present Illness HPI narrative: 79-year-old female with past medical history of CVA with left- sided weakness, diabetes, hyperlipidemia, chronic UTI, severe dementia from a senior care presents with an episode of 06/24 chest pain. At this time she is not answering questions with complete sentences, answering yes or no with similar presentation on 07/06/2020. Information obtained from prior medical record, notes from senior care, and EMS. MD complaint: chest pain Pertinent past history: coronary artery disease Onset (ago): hour(s) Timing of current episode: episodic Prior episodes: Yes Onset: during rest Pain location: substernal Pain radiation: none Severity: similar to previous episodes Risk Factors Coronary artery disease risk factors: diabetes, hyperlipidemia and hypertension Thoracic aortic dissection risk factors: longstanding hypertension Pulmonary embolism risk factors: clotting disorder and history of deep vein thrombosis Related Data On Oral Contraceptives: No Home Medications Medication Instructions Recorded Confirmed Breo Ellipta 1 inh INHALATION DAILY 07/06/20 07/18/20 Eliquis 5 mg PO BID 07/06/20 07/18/20 Humalog U-100 Insulin 1 sliding scale dose SUBCUT 07/06/20 07/18/20 USEASDIRECTD Lantus Solostar U-100 Insulin 24 unit SUBCUT QAM 07/06/20 07/18/20 albuterol sulfate [Ventolin HFA] 2 puff INHALATION Q4-6H PRN 07/06/20 07/18/20 atorvastatin 80 mg PO BEDTIME 07/06/20 07/18/20 famotidine 20 mg PO BID 07/06/20 07/18/20 metoprolol succinate 25 mg PO DAILY 07/06/20 07/18/20 multivitamin 1 tab PO DAILY 07/06/20 07/18/20 pregabalin 100 mg PO DAILY 07/06/20 07/18/20 trazodone 50 mg PO BEDTIME 07/06/20 07/18/20 Glucose Gel 15 g Q16W PRN 07/18/20 07/18/20 acetaminophen 650 mg PO Q6H PRN 07/18/20 07/18/20 albuterol sulfate [ProAir HFA] 2 puff INHALATION Q4-6H PRN 07/18/20 07/18/20 aspirin 81 mg PO DAILY 07/18/20 07/18/20 docusate sodium 100 mg PO DAILY 07/18/20 07/18/20 fluticasone furoate-vilanterol 1 inh INHALATION DAILY 07/18/20 07/18/20 [Breo Ellipta] lactulose 30 ml PO DAILY PRN 07/18/20 07/18/20 nitrofurantoin monohyd/m-cryst 100 mg PO BID 07/18/20 07/18/20 [Macrobid] Allergies Allergy/AdvReac Type Severity Reaction Status Date / Time Penicillins [PENICILLINS] Allergy Unknown STOMACH Verified 07/11/20 08:32 UPSET gabapentin [From Neurontin] Allergy Unknown Verified 07/11/20 08:32 lisinopril Allergy Unknown Verified 07/11/20 08:32 metformin [From Glucophage] Allergy Unknown Verified 07/11/20 08:32 Review of Systems Review of Systems: Constitutional: No Fever, No Chills, No Fatigue, No Malaise ENT/Mouth: No Hearing loss, No Swallowing Difficulty Eyes: No Eye Pain Cardiovascular: Positive Chest Pain, No SOB, No Edema, No Palpitations Respiratory: No Cough, No Sputum, No Wheezing, No Smoke Exposure, No Dyspnea Gastrointestinal: No Nausea, No Vomiting, No Diarrhea, No Constipation, No abdominal Pain, No Hematochezia, No Melena Genitourinary: no irregular bleeding, No Dysuria, No Urinary Frequency, No Hematuria, No Urinary Incontinence, No Urgency, No Flank Pain Musculoskeletal: No joint pain, No Myalgias, No Joint Swelling Skin: No Skin Lesions, No rash Neuro: left-sided weakness from prior CVA, No Numbness, No Paresthesias, No Loss of Consciousness, No Dizziness, No Headache Psych: No Anxiety/Panic, No Depression, No SI/HI/AH/VH, No Social Issues Heme/Lymph: No Bruising, No Bleeding,No Lymphadenopathy Endocrine: No Polyuria, No Polydipsia, No Temperature Intolerance PMF Past Medical History Attestation statement: The following information was validated with the patient. Source: old records reviewed Social History Social History Household Members: Other Housing: Other Alcohol intake: unknown Smoking Status: Unknown if ever smoked Use of substances other than those prescribed or required for medical reasons: Unknown Advance Directives: No (NOT SENT W/PATIENT) Advance Directives Information Provided: No (NOT SENT W/PATIENT) service: No Current occupational status: disabled Physical Exam Vital Signs: Vital Signs: Vital Signs Temp Pulse Resp BP Pulse Ox 07/18/20 21:30 97.9 F 70 17 164/53 H 96 07/18/20 19:33 98.2 F 72 18 147/49 H 96 07/18/20 18:09 98.9 F 70 17 166/55 H 97 Body Mass Index 28.4 Appearance: Alert. Oriented X 2 per baseline, has significant dementia. No acute distress. Eyes: Pupils equal, round and reactive to light. ENT: Pharynx normal. Neck: Normal inspection. Neck supple. CVS: Normal heart rate and rhythm. Pulses normal. Respiratory: No respiratory distress. Breath sounds normal. Abdomen: Soft and nontender. Skin: Skin warm and dry. Normal skin color. Normal skin turgor. Extremities: No lower extremity edema. Neuro: No motor deficit. No sensory deficit. Course Course Course Narrative: Plan is to rule out ACS, pneumonia, UTI, acute chest. chest x-rays negative for acute findings, CT scan is negative, urinalysis is negative, white count elevated at 15. highly unlikely that this is ACS as EKG is normal sinus rhythm, troponins are negative. plan of care is to discharge home, no new medications ordered patient is on Macrobid twice a day. Discharge instructions given to senior care staff by RN. MDM - Chest Pain Differential Diagnosis Differential diagnosis: Likely pneumothorax, stable angina, unstable angina pectoris, atypical chest pain, st elevation myocardial infarction, costochondritis and chest pain Medical Records Data Attestation: I reviewed the patient's medical records. Lab Data Attestation: I reviewed the patient's lab results. Result diagrams: 07/18/20 19:31 07/18/20 20:28 Labs: Lab Results 07/18/20 07/18/20 07/18/20 Range/Units 18:18 19:31 19:31 WBC 15.1 H (4.8-10.8) X10*3/uL RBC 4.35 (4.20-5.50) X10*6/uL Hgb 12.4 (12.0-16.0) g/dl Hct 38.7 (37-47) % MCV 89.0 (80-98) fL MCH 28.5 (27.0-33.0) pg MCHC 32.0 (31.0-35.0) g/dl RDW 15.2 (11.0-16.0) % Plt Count 367 (160-400) X10*3/uL MPV 10.1 (9.4-12.3) fL Immature Gran % (Auto) 0.3 (0.0-0.4) % Neut % (Auto) 64.7 (45-73) % Lymph % (Auto) 17.9 L (20-40) % [place] % (Auto) 6.4 (2-11) % Eos % (Auto) 10.0 H (0-4) % Baso % (Auto) 0.7 (0-2) % Lymph # (Auto) 2.7 (1.2-4.9) X10*3/uL [place] # (Auto) 1.0 (0.1-1.2) X10*3/uL Eos # (Auto) 1.5 H (0.0-0.4) X10*3/uL Baso # (Auto) 0.1 (0.0-0.2) X10*3/uL Abs Immat Gran (auto) 0.04 H (0.00-0.03) X10*3/uL Absolute Neuts (auto) 9.8 H (2.0-8.3) X10*3/uL Absolute Nucleated RBC 0.000 (0.0-0.012) X10*3/uL Nucleated RBC % (auto) 0.0 (0.0-0.2) /100WBC Sodium Cancelled Potassium Cancelled Chloride Cancelled Carbon Dioxide Cancelled Anion Gap Cancelled BUN Cancelled Creatinine Cancelled Estim Creat Clear Calc Cancelled Estimated GFR Cancelled POC Glucose 227 H (60-115) mg/dL Random Glucose Cancelled Lactic Acid (0.5-2.0) mmol/L Calcium Cancelled Troponin I High Sens (<3.5-17.0) ng/L Urine Color Urine Appearance Urine pH (5.0-8.0) Ur Specific Pratt (1.005-1.025) Urine Protein (NEG-TRACE) MG/DL Urine Glucose (UA) (NEG) MG/DL Urine Ketones (NEG) MG/DL Urine Blood (NEG) Urine Nitrite (NEG) Ur Leukocyte Esterase (NEG) 07/18/20 07/18/20 07/18/20 Range/Units 19:31 19:31 20:28 WBC (4.8-10.8) X10*3/uL RBC (4.20-5.50) X10*6/uL Hgb (12.0-16.0) g/dl Hct (37-47) % MCV (80-98) fL MCH (27.0-33.0) pg MCHC (31.0-35.0) g/dl RDW (11.0-16.0) % Plt Count (160-400) X10*3/uL MPV (9.4-12.3) fL Immature Gran % (Auto) (0.0-0.4) % Neut % (Auto) (45-73) % Lymph % (Auto) (20-40) % [place] % (Auto) (2-11) % Eos % (Auto) (0-4) % Baso % (Auto) (0-2) % Lymph # (Auto) (1.2-4.9) X10*3/uL [place] # (Auto) (0.1-1.2) X10*3/uL Eos # (Auto) (0.0-0.4) X10*3/uL Baso # (Auto) (0.0-0.2) X10*3/uL Abs Immat Gran (auto) (0.00-0.03) X10*3/uL Absolute Neuts (auto) (2.0-8.3) X10*3/uL Absolute Nucleated RBC (0.0-0.012) X10*3/uL Nucleated RBC % (auto) (0.0-0.2) /100WBC Sodium 137 Potassium 5.0 Chloride 104 Carbon Dioxide 22 Anion Gap 16 BUN 31 H Creatinine 0.91 Estim Creat Clear Calc 41.1 Estimated GFR 59 POC Glucose (60-115) mg/dL Random Glucose 200 H D Lactic Acid 1.4 (0.5-2.0) mmol/L Calcium 8.8 Troponin I High Sens 8.8 (<3.5-17.0) ng/L Urine Color Urine Appearance Urine pH (5.0-8.0) Ur Specific Pr[place] (1.005-1.025) Urine Protein (NEG-TRACE) MG/DL Urine Glucose (UA) (NEG) MG/DL Urine Ketones (NEG) MG/DL Urine Blood (NEG) Urine Nitrite (NEG) Ur Leukocyte Esterase (NEG) 07/18/20 Range/Units 20:31 WBC (4.8-10.8) X10*3/uL RBC (4.20-5.50) X10*6/uL Hgb (12.0-16.0) g/dl Hct (37-47) % MCV (80-98) fL MCH (27.0-33.0) pg MCHC (31.0-35.0) g/dl RDW (11.0-16.0) % Plt Count (160-400) X10*3/uL MPV (9.4-12.3) fL Immature Gran % (Auto) (0.0-0.4) % Neut % (Auto) (45-73) % Lymph % (Auto) (20-40) % [place] % (Auto) (2-11) % Eos % (Auto) (0-4) % Baso % (Auto) (0-2) % Lymph # (Auto) (1.2-4.9) X10*3/uL [place] # (Auto) (0.1-1.2) X10*3/uL Eos # (Auto) (0.0-0.4) X10*3/uL Baso # (Auto) (0.0-0.2) X10*3/uL Abs Immat Gran (auto) (0.00-0.03) X10*3/uL Absolute Neuts (auto) (2.0-8.3) X10*3/uL Absolute Nucleated RBC (0.0-0.012) X10*3/uL Nucleated RBC % (auto) (0.0-0.2) /100WBC Sodium Potassium Chloride Carbon Dioxide Anion Gap BUN Creatinine Estim Creat Clear Calc Estimated GFR POC Glucose (60-115) mg/dL Random Glucose Lactic Acid (0.5-2.0) mmol/L Calcium Troponin I High Sens (<3.5-17.0) ng/L Urine Color YELLOW Urine Appearance CLEAR Urine pH 5.5 (5.0-8.0) Ur Specific [place] 1.020 (1.005-1.025) Urine Protein NEG (NEG-TRACE) MG/DL Urine Glucose (UA) NEG (NEG) MG/DL Urine Ketones NEG (NEG) MG/DL Urine Blood NEG (NEG) Urine Nitrite NEG (NEG) Ur Leukocyte Esterase NEG (NEG) Imaging Data Chest x-ray: Attestation: I personally reviewed and interpreted this imaging study as follows: Radiologist's impression: EXAMINATION: XR CHEST CLINICAL INFORMATION: Chest pain COMPARISON: Chest x-ray 07/06/2020 TECHNIQUE: Frontal view of the chest was obtained. FINDINGS: Stable cardiac silhouette. Stable aortic valve stent graft. The lungs are well aerated. There is no lobar consolidation. No pleural effusion or pneumothorax. Degenerative changes of the spine and shoulders. XR/XR chest 1V IMPRESSION: No acute pulmonary pathology. CT scan - chest: Attestation: I personally reviewed and interpreted this imaging study as follows: Radiologist's impression: FINDINGS: LUNGS: Linear scarring or atelectasis at dependent right lung base. The lungs are otherwise normally aerated. The central bronchial airways are open. MEDIASTINUM: Status post TAVR. There are vascular calcifications of aorta and origin of great vessels. No mediastinal mass or fluid collections. No significant lymphadenopathy. There is a moderate-sized hiatal hernia. PLEURA: There is no pleural effusion. No pleural mass or thickening. AXILLA: No lymphadenopathy. UPPER ABDOMEN: Unremarkable. OSSEOUS STRUCTURES: Multilevel degenerative spondylosis of the spine. CT/CT chest wo con IMPRESSION: No acute abnormality of the chest. ECG Data ECG #1: Attestation: I personally reviewed and interpreted this ECG as follows: ECG interpretation date: 07/18/20 ECG interpretation time: 18:20 Prior ECG tracings: available for review Interpretation: Vent. rate 66 BPM TN interval 192 ms QRS duration 86 ms QT/QTc 422/442 ms P-R-T axes 45 -4 72 Normal sinus rhythm Low voltage QRS Inferior infarct , age undetermined Abnormal ECG When compared with ECG of 06-JUL-2020 17:38, No significant change was found Discharge Plan Discharge Clinical Impression: Chest pain Qualifiers: Chest pain type: unspecified Qualified Code(s): R07.9 - Chest pain, unspecified Patient Disposition: Home, Self-Care Instructions: Chest Wall Pain (ED) Additional Instructions: you were evaluated for chest pain. CT scan of the chest is negative for acute findings, x-ray of the chest was negative for acute findings, urinalysis is negative, lab values indicate an elevated white count Of 15. please follow-up with primary care physician this week. Thank you for choosing this emergency department for evaluation. Please follow-up with primary care physician as needed. Return to the emergency department for any new, concerning, or worsening symptoms. Prescriptions: No Action trazodone 50 mg Tablet 50 mg PO BEDTIME RF: 0 metoprolol succinate 25 mg Tablet Extended Release 24 Hr 25 mg PO DAILY RF: 0 albuterol sulfate [Ventolin HFA] 90 mcg/actuation Hfa Aerosol Inhaler 2 puff INHALATION Q4-6H PRN (Reason: Shortness Of Breath Or Wheezing) RF: 0 Eliquis 5 mg Tablet 5 mg PO BID RF: 0 Breo Ellipta 100-25 mcg/dose Blister With Device 1 inh INHALATION DAILY RF: 0 atorvastatin 80 mg Tablet 80 mg PO BEDTIME RF: 0 famotidine 20 mg Tablet 20 mg PO BID RF: 0 pregabalin 100 mg Capsule 100 mg PO DAILY RF: 0 Humalog U-100 Insulin 100 unit/mL Cartridge 1 sliding scale dose SUBCUT USEASDIRECTD RF: 0 Lantus Solostar U-100 Insulin 100 unit/mL (3 mL) Insulin Pen 24 unit SUBCUT QAM RF: 0 multivitamin Tablet 1 tab PO DAILY RF: 0 docusate sodium 100 mg Capsule 100 mg PO DAILY RF: 0 albuterol sulfate [ProAir HFA] 90 mcg/actuation Hfa Aerosol Inhaler 2 puff INHALATION Q4-6H PRN (Reason: Shortness Of Breath) RF: 0 lactulose 20 gram/30 mL Solution 30 ml PO DAILY PRN (Reason: Constipation) RF: 0 aspirin 81 mg Tablet,Delayed Release (Dr/Ec) 81 mg PO DAILY RF: 0 acetaminophen 650 mg Tablet 650 mg PO Q6H PRN (Reason: Headache) RF: 0 nitrofurantoin monohyd/m-cryst [Macrobid] 100 mg Capsule 100 mg PO BID RF: 0 Breo Ellipta 200-25 mcg/dose Blister With Device 1 inh INHALATION DAILY RF: 0 Glucose Gel 15 g Q16W PRN (Reason: Hypoglycemia) RF: 0 Interventions: ED Discharge Assessment Last Done: 07/18/20 23:23 Print Language: Surinamese
[2020-07-18 19:33] VITALS: BP 147/49; PULSE 72; RESP 18; TEMP 36.8; O2SAT 96
[2020-07-18 19:43] LABS: Basophils Absolute Auto 0.1 X10*3/uL (0.0-0.2); Basophils Percent Auto 0.7 % (0-2); Eosinophils Absolute Auto 1.5 X10*3/uL (0.0-0.4); Hematocrit 38.7 % (37-47); Hemoglobin 12.4 g/dl (12.0-16.0); Imm Gran Abs Auto 0.04 X10*3/uL (0.00-0.03); Imm Gran Pct Auto 0.3 % (0.0-0.4); Lymphocytes Absolute Auto 2.7 X10*3/uL (1.2-4.9); Lymphocytes Percent Auto 17.9 % (20-40); MANUAL DIFF FLAG NO; Mean Corpuscular Hemoglobin 28.5 pg (27.0-33.0); Mean Platelet Volume 10.1 fL (9.4-12.3); Monocytes Percent Auto 6.4 % (2-11); Neutrophils Absolute Auto 9.8 X10*3/uL (2.0-8.3); Neutrophils Percent Auto 64.7 % (45-73); Platelet Count 367 X10*3/uL (160-400); Red Blood Count 4.35 X10*6/uL (4.20-5.50); Red Cell Distribution Width 15.2 % (11.0-16.0); White Blood Count 15.1 X10*3/uL (4.8-10.8)
--- NOTE | 2020-07-18 20:12 | PC.NURSE ---
Addendum entered by Arianne Juarez RN 07/18/20 21:35: [phone] shelter contact [phone] Original Note: Both daughter All and [facility] staff updated. Awaiting labs at this time. She yells out with care but otherwise appears to be in NAD at this time.
[2020-07-18 20:13] LABS: Lactic Acid 1.4 mmol/L (0.5-2.0)
[2020-07-18 20:20] LABS: Troponin-I High Sensitivity 8.8 ng/L (<3.5-17.0)
[2020-07-18 21:15] LABS: Anion Gap 16 (12-20); Blood Urea Nitrogen 31 mg/dL (9-16); Calcium 8.8 mg/dL (8.4-10.2); Carbon Dioxide 22 mmol/L (22-29); Chloride 104 mmol/L (96-108); Creatinine Clr Calc Pharmacy 41.1; Estimated Glomerular Filt Rate 59; Glucose Random 200 mg/dL (60-115); Sodium 137 mmol/L (135-145)
[2020-07-18] MEDS: cefTRIAXone sodium 1 GM in 0.9 % Sodium Chloride 50 ML IV (21:28)
[2020-07-18 21:30] VITALS: BP 164/53; PULSE 70; RESP 17; TEMP 36.6; O2SAT 96
--- NOTE | 2020-07-18 21:36 | PC.NURSE ---
medicated with abx. pt repositined. calling out for lorie she is unable to verbalize needs at this time. she does not appear to be in distress
[2020-07-18] MEDS: 0.9 % Sodium Chloride 1,000 ML 999 ML IVCONT (21:57)
[2020-07-18 22:19] LABS: Glucose Urine UA NEG (NEG); Leukocyte Esterase Urine NEG (NEG); Nitrite Urine NEG (NEG); PH 5.5 (5.0-8.0); Urine Blood NEG (NEG); Urine Ketones NEG (NEG); Urine Protein NEG (NEG-TRACE)
[2020-07-18 22:20] LABS: Appearance Urine CLEAR; Color Urine YELLOW
--- NOTE | 2020-07-18 22:35 | CT_ITS ---
EXAMINATION: CT CHEST WITHOUT CONTRAST CLINICAL INFORMATION: Chest pain COMPARISON: None TECHNIQUE: Multidetector volumetric CT imaging of the chest was done. Axial MIP volume rendering provided. Sagittal and coronal reformatted images were obtained. This CT examination was performed using dose optimization techniques as appropriate, variously including the following: *Automated exposure control *Adjustment of mA and/or kV according to patient size (this includes techniques or standardized protocols for targeted exams where dose is matched to indication/reason for exam; i.e. extremities or head) *Use of iterative reconstruction technique DLP: 400 mGy-cm FINDINGS: LUNGS: Linear scarring or atelectasis at dependent right lung base. The lungs are otherwise normally aerated. The central bronchial airways are open. MEDIASTINUM: Status post TAVR. There are vascular calcifications of aorta and origin of great vessels. No mediastinal mass or fluid collections. No significant lymphadenopathy. There is a moderate-sized hiatal hernia. PLEURA: There is no pleural effusion. No pleural mass or thickening. AXILLA: No lymphadenopathy. UPPER ABDOMEN: Unremarkable. OSSEOUS STRUCTURES: Multilevel degenerative spondylosis of the spine. CT/CT chest wo con IMPRESSION: No acute abnormality of the chest.
== END 2020-07-19 00:27 | disposition home or self-care (01) ==
PROVIDERS: Nurse Practitioner Family; Emergency Provider Internal Medicine; PCP Internal Medicine
DX: R07.9 Chest pain, unspecified (principal); F03.90 Unspecified dementia, unspecified severity, without behavioral disturbance, psychotic disturbance, mood disturbance, and anxiety; Z79.899 Other long term (current) drug therapy; Z20.828 Contact with and (suspected) exposure to other viral communicable diseases
CPT/HCPCS: 36415; 71045; 71250; 80048; 81003; 82947; 83605; 84484; 85025; 87040; 87086; 93005; 96361; 96365; 99284; J0696

== ENCOUNTER 2020-08-17 07:50 | Outpatient (REF) | payer MEDICARE, MEDICAID, SELFPAY ==
[2020-08-17 10:34] LABS: MANUAL DIFF FLAG NO
[2020-08-17 10:45] LABS: Basophils Absolute Auto 0.1 X10*3/uL (0.0-0.2); Basophils Percent Auto 0.8 % (0-2); Eosinophils Absolute Auto 1.8 X10*3/uL (0.0-0.4); Eosinophils Percent Auto 15.4 % (0-4); Hematocrit 39.9 % (37-47); Hemoglobin 12.3 g/dl (12.0-16.0); Imm Gran Abs Auto 0.04 X10*3/uL (0.00-0.03); Imm Gran Pct Auto 0.3 % (0.0-0.4); Lymphocytes Absolute Auto 2.3 X10*3/uL (1.2-4.9); Lymphocytes Percent Auto 19.4 % (20-40); Mean Corpuscular HGB Conc 30.8 g/dl (31.0-35.0); Mean Corpuscular Hemoglobin 27.8 pg (27.0-33.0); Mean Corpuscular Volume 90.1 fL (80-98); Mean Platelet Volume 10.5 fL (9.4-12.3); Monocytes Absolute Auto 0.8 X10*3/uL (0.1-1.2); Monocytes Percent Auto 6.5 % (2-11); Neutrophils Absolute Auto 6.9 X10*3/uL (2.0-8.3); Neutrophils Percent Auto 57.6 % (45-73); Platelet Count 346 X10*3/uL (160-400); Red Blood Count 4.43 X10*6/uL (4.20-5.50); Red Cell Distribution Width 17.1 % (11.0-16.0)
[2020-08-17 11:56] LABS: Uric Acid 7.6 mg/dL (2.4-5.7)
== END 2020-08-17 07:51 | disposition home or self-care (01) ==
LOC: HO.WFDLDS 07:50
PROVIDERS: Visit Provider Family Medicine
DX: L60.0 Ingrowing nail (principal); M79.676 Pain in unspecified toe(s)
CPT/HCPCS: 36415; 84550; 85025

== ENCOUNTER 2020-09-10 10:01 | Emergency (ER) | payer MEDICARE, MEDICAID, SELFPAY ==
[2020-09-10 10:07] VITALS: BP 126/31; PULSE 72; RESP 16; TEMP 36.4; O2SAT 96; BMI 24.5
--- NOTE | 2020-09-10 10:19 | CT_ITS ---
EXAMINATION: CT BRAIN AND CT CERVICAL SPINE WITHOUT CONTRAST. CLINICAL INFORMATION: Unwitnessed fall, umbilicus. Rule out bleed. COMPARISON: CT brain 07/06/2020 TECHNIQUE: 5 mm thin axial and reformatted 2 mm thin sagittal and coronal images of brain were obtained without contrast. Subsequently 3 mm thin axial and reformatted 2 mm thin sagittal and coronal images of brain and cervical spine were obtained. DLP [id number] FINDINGS: Brain: There is no acute intra-axial, extra-axial bleed, masses, collection or midline shift. There is right centrum semiovale hypodensity extending to the hamilton radiata likely old infarct. There is no acute infarct seen. The lateral ventricles are symmetrical in size and configuration with mild enlargement. Mild parenchymal hypodensity seen in both cerebral hemispheres without mass effect. Bone windows reveal no calvarial abnormality. No scalp soft tissue abnormality. Bilateral paranasal sinuses and mastoid air cells are well-aerated. Cervical spine: There is mild straightening of cervical lordosis. The vertebral heights is normal. There is mild loss of C5-C6 disc height with ventral and posterior spondylosis. Rest the disc heights, vertebral heights and alignment is normal. No visible acute fracture, dislocation or subluxation seen. The craniovertebral junction and C1-C2 alignment is normal. The prevertebral and paravertebral soft tissues are normal. The lung apices are clear. Airways widely patent. Visualized thyroid lobes are symmetrical and normal. CT/CT cervical spine wo con IMPRESSION: No acute intracranial bleed or infarct. There is small infarct in the right centrum semiovale extending superiorly to right hamilton radiata new since 07/06/2020 CT exam. Mild cerebral volume loss with chronic small vessel ischemic changes. There is no visible acute fracture, dislocation or subluxation in cervical spine.
--- NOTE | 2020-09-10 10:21 | ED_ITS ---
HPI - Fall General Chief Complaint: Fall Stated Complaint: unwitnessed fall Time Seen by Provider: 09/10/20 10:14 Source: EMS Mode of arrival: EMS Limitations: other (Dementia, nonverbal) History of Present Illness HPI Narrative: 79-year-old female transferred from her nursing facility for evaluation of potential injuries from an unwitnessed fall. Apparently the patient fell at 4:45 a.m. and the fall was reported to nurses this morning at around 9:00 a.m.. The patient is at her baseline according to alf staff. Patient does take Eliquis and there was concern that she may have had a head injury therefore she was referred to the emergency department for evaluation. The patient is nonverbal and does not appear to be in distress. Related Data Home Medications Medication Instructions Recorded Confirmed Breo Ellipta 1 inh INHALATION DAILY 07/06/20 07/18/20 Eliquis 5 mg PO BID 07/06/20 07/18/20 Humalog U-100 Insulin 1 sliding scale dose SUBCUT 07/06/20 07/18/20 USEASDIRECTD Lantus Solostar U-100 Insulin 24 unit SUBCUT QAM 07/06/20 07/18/20 albuterol sulfate [Ventolin HFA] 2 puff INHALATION Q4-6H PRN 07/06/20 07/18/20 atorvastatin 80 mg PO BEDTIME 07/06/20 07/18/20 famotidine 20 mg PO BID 07/06/20 07/18/20 metoprolol succinate 25 mg PO DAILY 07/06/20 07/18/20 trazodone 50 mg PO BEDTIME 07/06/20 07/18/20 Glucose Gel 15 g Q16W PRN 07/18/20 07/18/20 albuterol sulfate [ProAir HFA] 2 puff INHALATION Q4-6H PRN 07/18/20 07/18/20 aspirin 81 mg PO DAILY 07/18/20 07/18/20 docusate sodium 100 mg PO DAILY 07/18/20 07/18/20 fluticasone furoate-vilanterol 1 inh INHALATION DAILY 07/18/20 07/18/20 [Breo Ellipta] lactulose 30 ml PO DAILY PRN 07/18/20 07/18/20 nitrofurantoin monohyd/m-cryst 100 mg PO BID 07/18/20 07/18/20 [Macrobid] acetaminophen 650 mg tablet 650 mg PO Q6H PRN 08/16/20 multivitamin with minerals 1 tab PO DAILY 08/28/20 Previous Rx's Medication Instructions Recorded sulfamethoxazole 800 1 tab PO Q12H 10 Days #20 tab 08/09/20 mg-trimethoprim 160 mg tablet tramadol 100 mg tablet 100 mg PO BID PRN 5 Days #10 tab 08/09/20 nystatin 100,000 unit/gram topical 1 appl TOPICAL DAILY PRN #30 g 08/16/20 powder lancets 28 gauge #400 ea 08/18/20 blood sugar diagnostic #100 ea 08/21/20 multivitamin 1 tab PO DAILY #90 tab 08/21/20 pregabalin 100 mg capsule 100 mg PO BEDTIME 30 Days #30 cap 08/21/20 colchicine 0.6 mg tablet See Rx Instructions PO BID 1 Days 08/22/20 #3 tab polyethylene glycol 3350 17 gram 17 g PO DAILY PRN 30 Days #30 ea 08/22/20 oral powder packet albuterol sulfate 2.5 mg INHALATION Q4-6H PRN 30 08/24/20 Days #180 ml clotrimazole 1 % topical cream 1 appl TOPICAL BID 14 Days #60 g 08/31/20 Allergies Allergy/AdvReac Type Severity Reaction Status Date / Time Penicillins [PENICILLINS] Allergy Unknown STOMACH Verified 07/11/20 08:32 UPSET gabapentin [From Neurontin] Allergy Unknown Verified 07/11/20 08:32 lisinopril Allergy Unknown Verified 07/11/20 08:32 metformin [From Glucophage] Allergy Unknown Verified 07/11/20 08:32 Review of Systems Review of Systems: Yes Unobtainable due to mental condition (Dementia) Constitutional: Constitutional: Reports as per HPI Eyes: Eyes: Reports as per HPI ENT: Reports as per HPI Cardiovascular: Cardiovascular: Reports as per HPI Respiratory: Respiratory: Reports as per HPI Gastrointestinal: Gastrointestinal: Reports as per HPI Genitourinary: Genitourinary: Reports as per HPI Musculoskeletal: Musculoskeletal: Reports as per HPI Integumentary/Breasts: Skin/Breast: Reports as per HPI Neurologic: Reports as per HPI Psychiatric: Psychiatric: Reports as per HPI Allergic/Immunologic: Allergic/Immunologic: Reports as per HPI [facility] Past Medical History Attestation statement: The following information was validated with the patient. [facility] Narrative: Borderline hypertension, not on any medications, prostate biopsy in the past-benign, he denies tobacco use, he drinks 3 times a week, 2-3 beverages, denies drug use. Medical History Chest pain Diabetes Hx of stroke associated with blood clotting tendency Hyperlipidemia Hypertension Peripheral neuropathy Surgical History Aortic valve replaced Social History Social History Household Members: Other Housing: Other Alcohol intake: unknown Smoking Status: Unknown if ever smoked Smoked in Last 30 Days: No Use of substances other than those prescribed or required for medical reasons: Unknown Advance Directives: No Advance Directives Information Provided: No service: No Current occupational status: disabled Physical Exam Vital Signs: Vital Signs: Last Vital Signs Temp 97.5 F 09/10/20 10:07 Pulse 61 09/10/20 11:52 Resp 12 09/10/20 11:52 BP 126/31 L 09/10/20 10:07 Pulse Ox 96 09/10/20 11:52 Body Mass Index 24.5 Const: General: no acute distress, well developed, alert and awake Nutritional Appearance: overweight HENMT: Head: Yes normal to inspection, Yes normocephalic and Yes atraumatic Ears: external ears normal General nose exam: Normal external nose present Face and sinus: Yes normal facial exam Mouth: Normal oral and palatal mucosa present Throat: Yes posterior oropharynx normal Eyes: General: appearance normal, both eyes and all related structures Alignment and Position: alignment normal Periorbital: periorbital findings normal Eyelids: Yes eyelids normal Conjunctivae: conjunctivae normal Sclerae: sclerae normal Pupils: Equal, round and reactive pupils present Direct Ophthalmoscopy: normal light reflex Neck: Neck: Yes tender (Midline cervical tenderness) Thyroid: Thyroid normal Chest: Chest palpation & inspection: normal inspection of the chest and normal palpation of entire chest wall Resp: Effort & Inspection: normal respiratory effort Auscultation: clear to auscultation bilaterally, no crackles, no rales and no rhonchi Cardio: Rate: regular rate Rhythm: regular rhythm Heart sounds: S1 normal heart sound present, S2 normal heart sound present and no murmurs GI: Inspection: Yes normal to inspection Palpation (GI): Soft to palpation, nontender and no guarding Auscultation: normal bowel sounds : General: Yes no CVA tenderness Back/Spine/Pelvis: Back: no CVA tenderness Cervical Spine: normal cervical lordosis Thoracic/Lumbar Spine: thoracic and lumbar spine normal to inspection Skin: General skin exam: no rashes or lesions noted Lesions: no lesions Rashes: no rashes Trauma: no lacerations or abrasions Neuro: Cranial nerves: Yes CN's II-XII intact bilaterally and Yes Equal, round and reactive pupils present Extrem: General: Yes normal to inspection and Yes full ROM Psych: Appearance: well kempt Attitude: cooperative Course Course Course Narrative: 79-year-old female with history of dementia, nonverbal, who was referred to the emergency department for evaluation of potential injuries from a fall that occurred at 4:45 a.m. on the day of arrival. The patient is on Eliquis. Examination was unremarkable. A did order a CT scan of the brain to rule out potential bleed caused by the fall and laboratory evaluation. 1226: The CT scan of the patient's head reveals no acute bleeding or fracture related to today's fall. CT scan of the neck was also unremarkable. The patient's laboratory evaluation was also noncontributory. I did discuss my findings with Jonathan who is the director for the patient's [facility]. The patient will be discharged back to her [facility] [address] [place] [address] MDM - Fall Lab Data Result diagrams: 09/10/20 10:50 09/10/20 10:50 Labs: Lab Results 09/10/20 09/10/20 Range/Units 10:50 10:50 WBC 10.7 (4.8-10.8) X10*3/uL RBC 4.33 (4.20-5.50) X10*6/uL Hgb 12.6 (12.0-16.0) g/dl Hct 39.7 (37-47) % MCV 91.7 (80-98) fL MCH 29.1 (27.0-33.0) pg MCHC 31.7 (31.0-35.0) g/dl RDW 16.9 H (11.0-16.0) % Plt Count 319 (160-400) X10*3/uL MPV 9.8 (9.4-12.3) fL Immature Gran % (Auto) 0.3 (0.0-0.4) % Neut % (Auto) 59.5 (45-73) % Lymph % (Auto) 20.2 (20-40) % [place] % (Auto) 6.4 (2-11) % Eos % (Auto) 12.7 H (0-4) % Baso % (Auto) 0.9 (0-2) % Lymph # (Auto) 2.2 (1.2-4.9) X10*3/uL [place] # (Auto) 0.7 (0.1-1.2) X10*3/uL Eos # (Auto) 1.4 H (0.0-0.4) X10*3/uL Baso # (Auto) 0.1 (0.0-0.2) X10*3/uL Abs Immat Gran (auto) 0.03 (0.00-0.03) X10*3/uL Absolute Neuts (auto) 6.4 (2.0-8.3) X10*3/uL Absolute Nucleated RBC 0.000 (0.0-0.012) X10*3/uL Nucleated RBC % (auto) 0.0 (0.0-0.2) /100WBC Sodium 140 (135-145) mmol/L Potassium 4.5 (3.3-5.1) mmol/l Chloride 107 (96-108) mmol/L Carbon Dioxide 24 (22-29) mmol/L Anion Gap 14 (12-20) BUN 28 H (9-16) mg/dL Creatinine 0.96 (0.5-1.4) mg/dL Estim Creat Clear Calc 41.1 Estimated GFR 56 Random Glucose 126 H D (60-115) mg/dL Calcium 9.4 D (8.4-10.2) mg/dL Total Bilirubin 0.4 (0.0-1.0) mg/dL AST 24 (5-31) U/L ALT 32 H (0-31) U/L Alkaline Phosphatase 100 (39-117) U/L Total Protein 7.0 (6.5-8.0) g/dL Albumin 3.9 (3.5-5.0) g/dL Discharge Plan Discharge Clinical Impression: Fall, Contusion of head, Chronic anticoagulation Patient Disposition: Home, Self-Care Instructions: Head Injury (ED) Additional Instructions: Catrina'a CT scan of her head and neck revealed no fractures or bleeding. Her laboratory evaluation was normal. I did not find any significant injuries on her physical examination. Please follow the head injury instructions and sent her back to the emergency department if she has any acute changes that are concerning to the [facility] staff Prescriptions: No Action nystatin 100,000 unit/gram powder 1 appl topical DAILY PRN (Reason: irritation of body folds) Qty: 30 RF: 2 acetaminophen 650 mg tablet 650 mg PO Q6H PRN (Reason: Headache) RF: 0 (DME) lancets [FreeStyle Lancets] 28 gauge misc See Rx Instructions .ROUTE .MEDSUPPLY Qty: 400 RF: 0 pregabalin 100 mg capsule 100 mg PO BEDTIME 30 Days Qty: 30 RF: 2 multivitamin Tablet 1 tab PO DAILY Qty: 90 RF: 2 (DME) FreeStyle Test Strip See Rx Instructions .ROUTE .MEDSUPPLY Qty: 100 RF: 2 albuterol sulfate 2.5 mg /3 mL (0.083 %) solution for nebulization 2.5 mg inhalation Q4-6H PRN (Reason: shortness of breath or wheezing) 30 Days Qty: 180 RF: 4 multivitamin with minerals [One Daily Plus Minerals] Tablet 1 tab PO DAILY RF: 0 clotrimazole [Antifungal (clotrimazole)] 1 % cream 1 appl topical BID 14 Days Qty: 60 RF: 1 trazodone 50 mg Tablet 50 mg PO BEDTIME RF: 0 metoprolol succinate 25 mg Tablet Extended Release 24 Hr 25 mg PO DAILY RF: 0 albuterol sulfate [Ventolin HFA] 90 mcg/actuation Hfa Aerosol Inhaler 2 puff INHALATION Q4-6H PRN (Reason: Shortness Of Breath Or Wheezing) RF: 0 Eliquis 5 mg Tablet 5 mg PO BID RF: 0 Breo Ellipta 100-25 mcg/dose Blister With Device 1 inh INHALATION DAILY RF: 0 atorvastatin 80 mg Tablet 80 mg PO BEDTIME RF: 0 famotidine 20 mg Tablet 20 mg PO BID RF: 0 Humalog U-100 Insulin 100 unit/mL Cartridge 1 sliding scale dose SUBCUT USEASDIRECTD RF: 0 Lanly Solostar U-100 Insulin 100 unit/mL (3 mL) Insulin Pen 24 unit SUBCUT QAM RF: 0 docusate sodium 100 mg Capsule 100 mg PO DAILY RF: 0 albuterol sulfate [ProAir HFA] 90 mcg/actuation Hfa Aerosol Inhaler 2 puff INHALATION Q4-6H PRN (Reason: Shortness Of Breath) RF: 0 lactulose 20 gram/30 mL Solution 30 ml PO DAILY PRN (Reason: Constipation) RF: 0 aspirin 81 mg Tablet,Delayed Release (Dr/Ec) 81 mg PO DAILY RF: 0 nitrofurantoin monohyd/m-cryst [Macrobid] 100 mg Capsule 100 mg PO BID RF: 0 Breo Ellipta 200-25 mcg/dose Blister With Device 1 inh INHALATION DAILY RF: 0 Glucose Gel 15 g Q16W PRN (Reason: Hypoglycemia) RF: 0 sulfamethoxazole-trimethoprim [Bactrim DS] 800-160 mg tablet 1 tab PO Q12H 10 Days Qty: 20 RF: 0 tramadol 100 mg tablet 100 mg PO BID PRN (Reason: pain) 5 Days Qty: 10 RF: 0 colchicine 0.6 mg tablet See Rx Instructions PO BID 1 Days Qty: 3 RF: 0 polyethylene glycol 3350 [Miralax] 17 gram powder in packet 17 g PO DAILY PRN (Reason: constipation) 30 Days Qty: 30 RF: 3
[2020-09-10 10:55] LABS: Basophils Absolute Auto 0.1 X10*3/uL (0.0-0.2); Basophils Percent Auto 0.9 % (0-2); Eosinophils Absolute Auto 1.4 X10*3/uL (0.0-0.4); Eosinophils Percent Auto 12.7 % (0-4); Hematocrit 39.7 % (37-47); Hemoglobin 12.6 g/dl (12.0-16.0); Imm Gran Abs Auto 0.03 X10*3/uL (0.00-0.03); Imm Gran Pct Auto 0.3 % (0.0-0.4); Lymphocytes Absolute Auto 2.2 X10*3/uL (1.2-4.9); Lymphocytes Percent Auto 20.2 % (20-40); MANUAL DIFF FLAG NO; Mean Corpuscular HGB Conc 31.7 g/dl (31.0-35.0); Mean Corpuscular Hemoglobin 29.1 pg (27.0-33.0); Mean Corpuscular Volume 91.7 fL (80-98); Mean Platelet Volume 9.8 fL (9.4-12.3); Monocytes Absolute Auto 0.7 X10*3/uL (0.1-1.2); Monocytes Percent Auto 6.4 % (2-11); Neutrophils Absolute Auto 6.4 X10*3/uL (2.0-8.3); Neutrophils Percent Auto 59.5 % (45-73); Platelet Count 319 X10*3/uL (160-400); Red Blood Count 4.33 X10*6/uL (4.20-5.50); Red Cell Distribution Width 16.9 % (11.0-16.0); White Blood Count 10.7 X10*3/uL (4.8-10.8)
[2020-09-10 11:23] LABS: Anion Gap 14 (12-20); Blood Urea Nitrogen 28 mg/dL (9-16); Carbon Dioxide 24 mmol/L (22-29); Chloride 107 mmol/L (96-108); Creatinine Clr Calc Pharmacy 41.1; Estimated Glomerular Filt Rate 56; Potassium 4.5 mmol/l (3.3-5.1); Sodium 140 mmol/L (135-145)
[2020-09-10 11:24] LABS: Alanine Aminotransferase 32 U/L (0-31); Albumin Level 3.9 g/dL (3.5-5.0); Alkaline Phosphatase 100 U/L (39-117); Aspartate Amino Transferase 24 U/L (5-31); Bilirubin Total 0.4 mg/dL (0.0-1.0); Calcium 9.4 mg/dL (8.4-10.2); Glucose Random 126 mg/dL (60-115)
[2020-09-10 11:52] VITALS: PULSE 61; RESP 12; O2SAT 96
== END 2020-09-10 13:16 | disposition home or self-care (01) ==
PROVIDERS: Emergency Provider Emergency Medicine Emergency Medical Services; PCP Family Medicine
DX: S00.93XA Contusion of unspecified part of head, initial encounter (principal); G44.309 Post-traumatic headache, unspecified, not intractable; W01.0XXA Fall on same level from slipping, tripping and stumbling without subsequent striking against object, initial encounter; Y93.01 Activity, walking, marching and hiking; Y92.9 Unspecified place or not applicable; Y99.9 Unspecified external cause status; Z79.01 Long term (current) use of anticoagulants; Z79.899 Other long term (current) drug therapy
CPT/HCPCS: 36415; 70450; 72125; 80053; 85025; 99284

== ENCOUNTER 2020-11-24 18:14 | Outpatient (REF) | payer MEDICARE, MEDICAID, SELFPAY ==
[2020-11-24 18:31] LABS: Glucose Urine UA >=1000 MG/DL (NEG); Leukocyte Esterase Urine 1+ (NEG); Nitrite Urine NEG (NEG); PH 5.5 (5.0-8.0); Urine Blood 1+ (NEG); Urine Ketones NEG (NEG); Urine Protein NEG (NEG-TRACE)
[2020-11-24 18:33] LABS: Appearance Urine CLEAR; Color Urine YELLOW
[2020-11-24 18:42] LABS: Bacteria Urine 1+ /LPF; Squamous Epithelial Cell Urine 1+ /LPF; WBC Urine 30-49 /HPF (0-4)
== END 2020-11-24 18:15 | disposition home or self-care (01) ==
LOC: HO.LNP 18:14
PROVIDERS: Visit Provider Family Medicine
DX: N30.01 Acute cystitis with hematuria (principal)
CPT/HCPCS: 81001; 87086